=== PATIENT | male | born 1945 | race Caucasian/White ===

== ENCOUNTER 2020-08-24 09:47 | Day surgery (SDC) | payer MEDICARE, OTHER ==
[~2020-08-24 09:47] MED LIST: BUPIVACAINE HCL 0.75% INJ/PF (7.5 MG/1 ML) 10 ML SDV OD PRN; KETOROLAC TROMETHAMINE 0.45% 4 DROP/0.4 ML DROPERETTE OD PRN; LIDOCAINE 1% INJ-PF (10 MG/ML) 30 ML SDV ONE; LIDOCAINE 4% INJ/PF (40 MG/ML) 5 ML AMPUL OD PRN
[2020-08-24] MEDS: TETRACAINE HCL 0.5% OPH SOLN 4 ML OD PRN ×3 (10:15→11:15)
[2020-08-24] MEDS: TROPICAMIDE 1% OPH SOLN 15 ML OD PRN ×3 (10:16→10:45)
[2020-08-24] MEDS: BESIFLOXACIN HCL 0.6% OPH SUSP 5 ML BOTTLE OD PRN ×4 (10:16→11:50)
[2020-08-24] MEDS: CYCLOPENTOLATE 0.2%/PHENYLEPHRINE 1% OPH SOLN 2 ML OD PRN ×3 (10:16→10:45)
[2020-08-24] MEDS: LIDOCAINE 1%/PHENYLEPHRINE 1.5% 1 ML VIAL ONE ×2 (11:23→11:31)
[2020-08-24] MEDS: CHONDR SU A NA/HYALUR INTRAOC KIT (SURGICARE) ONE ×2 (11:23→11:31)
[2020-08-24] MEDS: EPINEPHRINE INJ/PF 1 MG/1 ML AMPULE ONE ×2 (11:23→11:31)
[2020-08-24] MEDS ORDERED: MIDAZOLAM 2 MG/2 ML INJ ONE (11:27)
[2020-08-24] MEDS: PREDNISOLONE ACETATE 1% OPH SUSP 5 ML OD PRN ×2 (11:50)
[2020-08-24] MEDS: DORZOLAMIDE HCL 2%/TIMOLOL MALEAT 0.5% OPH SOLN 10 ML OD PRN ×2 (11:50)
--- NOTE | 2020-08-24 12:13 | Operative Report ---
Operative Report-[facility] Operative Report: DATE OF SURGERY: 08/24/2020 PREOPERATIVE DIAGNOSIS: 1. CATARACT, RIGHT EYE 2. PUPIL MIOSIS, RIGHT EYE POSTOPERATIVE DIAGNOSIS: 1. CATARACT, RIGHT EYE 2. PUPIL MIOSIS, RIGHT EYE PROCEDURE PERFORMED: COMPLEX CATARACT EXTRACTION WITH TORIC INTRAOCULAR LENS, RIGHT EYE Intraocular Lens Model: [id number] 17.0 Total Phaco Time: 20.92 CDE SURGEON: DEEJAY VELARDE MD ANESTHESIA: Topical with MAC plus intraocular phenylephrine and lidocaine INDICATIONS FOR SURGERY: Difficulty reading small print and driving INDICATIONS FOR COMPLEX: Poor pupil dilation requiring the use of a Malyugin ring PROCEDURE: The patient was brought to the operating room and placed in a seated position. A lid lid speculum was placed in the right eye. Using a toric marker the 0-70 and 180 degrees of the eye was marked using a toric marker. The lid speculum was removed. The patient was placed in a reclining position. Topical anesthesia was administered. This consisted of instrument wipe pledgets soaked in a solution of 4% Xylocaine mixed with 0.75% Marcaine in a 1:2 ratio. A 2 x 1 cm pledget was placed in the superior fornix. A 1 x 1 cm pledget was placed in the inferior fornix. The eye was patched for 5 minutes. The patch and pledgets were removed. The eye was sterilely prepped and draped in the usual manner. A lid speculum was placed in the eye. A 4-0 black silk suture was placed around the superior and inferior rectus muscle to use as traction. A conjunctival peritomy was made at the 10 o'clock position. Hemostasis was obtained with bipolar cautery. A posterior limbal groove was created using a crescent knife and dissected anteriorly towards the cornea. Sharp point blade was used to create a paracentesis site at the 2 o'clock position. A 2.4 mm keratome was used into the anterior chamber through the groove. Then 0.5 mL of 1% non-preserved lidocaine with phenylephrine was injected into the anterior chamber. Viscoelastic was injected into the anterior chamber. Pupil dilation was approximately 4.5 mm. A Malyugin Ring was placed stabilizing the iris. An anterior capsulotomy was performed using Utrata forceps in a capsulorrhexis fashion. Hydrodissection and hydrodelineation was performed. Phacoemulsification was performed in the divide and conquer technique. Following this, that I/A unit was used to remove residual cortex. Viscoelastic was injected into the capsular bag. A small capsular tag was seen superiorly with an intact posterior capsule. The 175 degree axis was marked on the eye using the previously marked sites as reference. Intraocular lens were placed in the capsular bag and rotated to the 175 degree axis. The Malyugin ring haptics were removed and the ring was removed from the eye. The I/A unit was used to remove residual viscoelastic. The lens position was readjusted to the 175 degree axis. The wound was seen to be watertight under high and low pressure and no sutures were placed. The 4-0 black silk sutures and lid speculum were removed. The eye was shielded after Besivance and Cosopt drops were placed. The patient tolerated the procedure well and was sent to recovery room in good condition.
== END 2020-08-24 12:23 | disposition home or self-care (01) ==
LOC: SC 09:47
PROVIDERS: ATTEND Ophthalmology
DX: H25.11 Age-related nuclear cataract, right eye (principal); H57.03 Miosis; D86.2 Sarcoidosis of lung with sarcoidosis of lymph nodes; H16.223 Keratoconjunctivitis sicca, not specified as Sjogren's, bilateral; H17.89 Other corneal scars and opacities; Z79.899 Other long term (current) drug therapy; I48.91 Unspecified atrial fibrillation; D64.9 Anemia, unspecified
CPT/HCPCS: 66982; J2250; J3490 ×4; A9270; J0171; 142; V2787

== ENCOUNTER 2020-10-11 13:47 | Inpatient (IN) | payer MEDICARE, OTHER ==
--- NOTE | 2020-10-11 14:36 | ER Document Report ---
ED Medical Screen (RME) - General Chief Complaint: Abnormal Lab Results Stated Complaint: ABNORMAL LABS Time Seen by Provider: 10/11/20 14:24 Primary Care Provider: VISHNU BEE MD [Primary Care Provider] - Follow up as needed Notes: Patient is a 75-year-old male who presents emergency department with low blood counts. Few days ago the patient's hemoglobin was 6. He was seen by Dr. Bee and got blood. He was referred to the emergency department by Dr. Cano. And also had a slightly elevated bilirubin level. Denies any right upper quadrant abdominal pain. Patient has a history of sarcoidosis. Exam: Patient appears jaundiced. I have greeted and performed a rapid initial assessment of this patient. A comprehensive ED assessment and evaluation of the patient, analysis of test results and completion of medical decision making process will be conducted by an additional ED providers. TRAVEL OUTSIDE OF THE [place] IN LAST 30 DAYS: No - Related Data Allergies/Adverse Reactions: No Known Allergies Allergy (Verified 08/20/20 12:05) Past Medical History - Past Medical History Cardiac Medical History: Reports: Hx Hypertension Denies: Hx Congestive Heart Failure, Hx Heart Attack Pulmonary Medical History: Denies: Hx Asthma, Hx Bronchitis, Hx COPD, Hx Pneumonia, Hx Tuberculosis Neurological Medical History: Denies: Hx Cerebrovascular Accident, Hx Seizures, Hx Parkinson's Disease Renal/ Medical History: Reports: Hx Benign Prostatic Hyperplasia. Denies: Hx End Stage Renal Disease, Hx Kidney Stones GI Medical History: Denies: Hx Cirrhosis, Hx Gastroesophageal Reflux Disease, Hx Hepatitis, Hx Hiatal Hernia, Hx Ulcer Musculoskeltal Medical History: Denies Hx Arthritis, Denies Hx Multiple Sclerosis Psychiatric Medical History: Denies: Hx Bipolar Disorder, Hx Depression, Hx Schizophrenia Infectious Medical History: Denies: Hx Hepatitis Past Surgical History: Denies: Hx Open Heart Surgery, Hx Pacemaker - Immunizations Hx Diphtheria, Pertussis, Tetanus Vaccination: Yes Physical Exam - Vital signs Vitals: Temp Resp BP Pulse Ox 98.0 F 20 119/56 L 100 10/11/20 13:57 10/11/20 13:57 10/11/20 13:57 10/11/20 13:57 Course - Vital Signs Vital signs: Temp Pulse Resp BP Pulse Ox 98.0 F 20 119/56 L 100 10/11/20 13:57 10/11/20 13:57 10/11/20 13:57 10/11/20 13:57 Doctor's Discharge - Discharge Referrals: VISHNU BEE MD [Primary Care Provider] - Follow up as needed
--- NOTE | 2020-10-11 15:32 | RADIOLOGY REPORT (SQ) ---
EXAM DESCRIPTION: CHEST SINGLE VIEW IMAGES COMPLETED DATE/TIME: 10/11/2020 3:24 pm REASON FOR STUDY: shortness of breath when walking COMPARISON: None. EXAM PARAMETERS: NUMBER OF VIEWS: One view. TECHNIQUE: An AP view of the chest was obtained. RADIATION DOSE: NA LIMITATIONS: None. FINDINGS: LUNGS AND PLEURA: No consolidation, pleural effusion or pneumothorax. MEDIASTINUM AND HILAR STRUCTURES: No mediastinal or hilar contour abnormality. HEART AND VASCULAR STRUCTURES: The cardiac silhouette and pulmonary vasculature are within normal prado its. BONES: No acute findings. HARDWARE: None in the chest. OTHER: No other finding. IMPRESSION: No acute cardiopulmonary process. TECHNICAL DOCUMENTATION: JOB ID: [id number] 2010 [employer]- All Rights Reserved Reading location - IP/workstation name: [email or web address]
[2020-10-11 15:38] LABS: HEMATOCRIT 19.6 % (37.9-51.0); MEAN CORPUSCULAR HEMOGLOBIN 34.2 pg (27.0-33.4); MEAN CORPUSCULAR HGB CONC 33.8 g/dL (32.0-36.0); MEAN CORPUSCULAR VOLUME 101 fl (80-97); RED BLOOD COUNT 1.93 10^6/uL (4.35-5.55); RED CELL DISTRIBUTION WIDTH 23.6 % (11.5-14.0)
[2020-10-11 15:44] LABS: INTERNATIONAL RATION (INR) 1.22; PROTHROMBIN TIME 15.6 SEC (11.4-15.4)
[2020-10-11 15:45] LABS: PARTIAL THROMBOPLASTIN TIME 33.2 SEC (23.5-35.8)
[2020-10-11 15:50] LABS: ALKALINE PHOSPHATASE 67 U/L (38-126); ANION GAP 13 (5-19); ASPARTATE AMINO TRANSFERASE 51 U/L (17-59); BILIRUBIN,DIRECT 0.8 mg/dL (0.0-0.4); BILIRUBIN,TOTAL 6.4 mg/dL (0.2-1.3); BLOOD UREA NITROGEN 19 mg/dL (7-20); CALCIUM 9.7 mg/dL (8.4-10.2); CARBON DIOXIDE 22 mmol/L (22-30); CHLORIDE 103 mmol/L (98-107); GLUCOSE 115 mg/dL (75-110); POTASSIUM 4.1 mmol/L (3.6-5.0); TOTAL PROTEIN 8.5 g/dL (6.3-8.2)
[2020-10-11 15:53] LABS: PLATELET COUNT 79 10^3/uL (150-450)
[2020-10-11 15:59] LABS: ABSOLUTE MONOCYTES # (MANUAL) 0.4 10^3/uL (0.1-1.4); ANISOCYTOSIS 3+; BAND NEUTROPHILS % (MANUAL) 3 % (3-5); BASOPHILS % (MANUAL) 0 % (0-2); EOSINOPHILS % (MANUAL) 0 % (0-6); LYMPHOCYTES % (MANUAL) 32 % (13-45); METAMYELOCYTES % (MANUAL) 1 % (0-1); MONOCYTES % (MANUAL) 14 % (3-13); NUCLEATED RED BLOOD CELLS 4 /100 WBC (0); SEGMENTED NEUTROPHILS % (MAN) 49 % (42-78); TOTAL CELLS COUNTED 100
[2020-10-11 16:00] LABS: PLATELET COMMENT DECREASED
[2020-10-11 16:01] LABS: OVALOCYTES 1+; POIKILOCYTOSIS 1+; POLYCHROMASIA SLIGHT; TEAR DROP CELLS 1+
[2020-10-11 16:03] LABS: HEMOGLOBIN 6.6 g/dL (13.5-17.0)
[2020-10-11] MEDS ORDERED: NORMAL SALINE 250 ML IV PRN ×2 (16:09)
--- NOTE | 2020-10-11 16:12 | ER Document Report ---
ED General - General Chief Complaint: Abnormal Lab Results Stated Complaint: ABNORMAL LABS Time Seen by Provider: 10/11/20 14:24 Primary Care Provider: VISHNU BARCLAY MD [Primary Care Provider] - Follow up as needed Mode of Arrival: Ambulatory Information source: Patient Notes: 10/11/20 14:25 - Nursing Note by DILLONJULIANRA Toro Num: [id number] : 1945 Patient Age: 75 Pt arrives via wheelchair to triage. Pt states that Dr. Cano sent him here for admission for an elevated bilirubin. Pt states that he has anemia and gets blood transfusions every other week. Pt reports a hx of sarcoidosis. Pt is a&ox4 with mild sob. Initialized on 10/11/20 14:25 - END OF NOTE ED Medical Screen (Place Notes) - General Chief Complaint: Abnormal Lab Results Stated Complaint: ABNORMAL LABS Time Seen by Provider: 10/11/20 14:24 Primary Care Provider: VISHNU BARCLAY MD [Primary Care Provider] - Follow up as needed Notes: Patient is a 75-year-old male who presents emergency department with low blood counts. Few days ago the patient's hemoglobin was 6. He was seen by Dr. Barclay and got blood. He was referred to the emergency department by Dr. Cano. And also had a slightly elevated bilirubin level. Denies any right upper quadrant abdominal pain. Patient has a history of sarcoidosis. Exam: Patient appears jaundiced. MY NOTES 75-year-old male arrives by POV with his after he was evaluated by Dr. Cano yesterday with blood work that revealed increased bilirubin. He was advised to come to the hospital today. He complains of mild left lower quadrant abdominal pain but otherwise is asymptomatic. He reports in the 1970s he had splenomegaly but this self resolved. He has been followed by Dr. Barclay and has had to receive blood transfusions since last September every 3 weeks or so. His reports for the last month or more he has been receiving 2 units of blood every 10 days. He last received blood on 28 September and then again on 07 October. TRAVEL OUTSIDE OF THE [place] IN LAST 30 DAYS: No - Related Data Allergies/Adverse Reactions: No Known Allergies Allergy (Verified 08/20/20 12:05) Past Medical History - General Information source: Patient - Social History Smoking Status: Unknown if Ever Smoked Cigarette use (# per day): No Chew tobacco use (# tins/day): No Smoking Education Provided: No Frequency of alcohol use: None Drug Abuse: None Lives with: Family Family History: Reviewed & Not Pertinent Patient has suicidal ideation: No Patient has homicidal ideation: No - Past Medical History Cardiac Medical History: Reports: Hx Hypertension Denies: Hx Congestive Heart Failure, Hx Heart Attack Pulmonary Medical History: Denies: Hx Asthma, Hx Bronchitis, Hx COPD, Hx Pneumonia, Hx Tuberculosis Neurological Medical History: Denies: Hx Cerebrovascular Accident, Hx Seizures, Hx Parkinson's Disease Renal/ Medical History: Reports: Hx Benign Prostatic Hyperplasia. Denies: Hx End Stage Renal Disease, Hx Kidney Stones GI Medical History: Denies: Hx Cirrhosis, Hx Gastroesophageal Reflux Disease, Hx Hepatitis, Hx Hiatal Hernia, Hx Ulcer Musculoskeletal Medical History: Denies Hx Arthritis, Denies Hx Multiple Sclerosis Psychiatric Medical History: Denies: Hx Bipolar Disorder, Hx Depression, Hx Schizophrenia Infectious Medical History: Denies: Hx Hepatitis Past Surgical History: Denies: Hx Open Heart Surgery, Hx Pacemaker - Immunizations Hx Diphtheria, Pertussis, Tetanus Vaccination: Yes Review of Systems - Review of Systems Constitutional: No symptoms reported EENT: No symptoms reported Cardiovascular: No symptoms reported Respiratory: No symptoms reported Gastrointestinal: See HPI, Abdominal pain - Left lower quadrant abdominal pain Genitourinary: No symptoms reported Male Genitourinary: No symptoms reported Musculoskeletal: No symptoms reported Skin: See HPI, Change in color Hematologic/Lymphatic: No symptoms reported Neurological/Psychological: No symptoms reported -: Yes All other systems reviewed and negative Physical Exam - Vital signs Vitals: Temp Resp BP Pulse Ox 98.0 F 20 119/56 L 100 10/11/20 13:57 10/11/20 13:57 10/11/20 13:57 10/11/20 13:57 Interpretation: Normal - General General appearance: Appears well, Alert - HEENT Head: Normocephalic, Atraumatic Eyes: Scleral icterus Conjunctiva: Icteric Extraocular movements intact: Yes Eyelashes: Normal Pupils: PERRL Sinus: Normal Nasal: Normal Mouth/Lips: Normal Mucous membranes: Normal Pharynx: Normal Neck: Normal - Respiratory Respiratory status: No respiratory distress Chest status: Nontender Breath sounds: Normal Chest palpation: Normal - Cardiovascular Rhythm: Regular Heart sounds: Normal auscultation Murmur: No - Abdominal Inspection: Normal Distension: No distension Bowel sounds: Normal Tenderness: Nontender Organomegaly: No organomegaly - Rectal Prostate: Other - Deferred - Genitourinary Scrotum: Other - Deferred - Back Back: Normal, Nontender - Extremities General upper extremity: Normal inspection, Nontender, Normal color, Normal ROM, Normal temperature General lower extremity: Normal inspection, Nontender, Normal color, Normal ROM, Normal temperature, Normal weight bearing. No: Adoins's sign - Neurological Neuro grossly intact: Yes Cognition: Normal Orientation: AAOx4 [place] Coma Scale Eye Opening: Spontaneous [place] Coma Scale Verbal: Oriented [place] Coma Scale Motor: Obeys Commands [place] Coma Scale Total: 15 Speech: Normal Motor strength normal: LUE, RUE, LLE, RLE Sensory: Normal - Psychological Associated symptoms: Normal affect, Normal mood - Skin Skin Temperature: Warm Skin Moisture: Dry Skin Color: Jaundiced Course - Vital Signs Vital signs: Temp Pulse Resp BP Pulse Ox 98.3 F 94 22 H 135/58 H 100 10/11/20 18:53 10/11/20 18:53 10/11/20 18:53 10/11/20 18:53 10/11/20 18:53 - Laboratory Results Result Diagrams: 10/11/20 15:05 10/11/20 15:05 Laboratory Results Interpreted: 10/11/20 10/11/20 10/11/20 15:05 15:05 15:05 WBC 3.0 L RBC 1.93 L Hgb 6.6 L Hct 19.6 L MCV 101 H MCH 34.2 H RDW 23.6 H Plt Count 79 L Monocytes % (Manual) 14 H Abs Neuts (Manual) 1.6 L PT 15.6 H Glucose 115 H Total Bilirubin 6.4 H Direct Bilirubin 0.8 H Total Protein 8.5 H Crossmatch 10/11/20 15:05 WBC RBC Hgb Hct MCV MCH RDW Plt Count Monocytes % (Manual) Abs Neuts (Manual) PT Glucose Total Bilirubin Direct Bilirubin Total Protein Crossmatch See Detail Critical Laboratory Results Reviewed: Yes Attending or Supervising Physician who Reviewed Labs: AUUGST RUIZ JR - Radiology Results Radiology Results Interpreted: 10/11/20 19:20 Dr. Juárez radiologist Critical Radiology Results Reviewed: No Critical Results Attending or Supervising Physician who Reviewed Radiology: AUGUST RUIZ JR Critical Care Note - Critical Care Note Comments: I attempted to call Dr. Cano about this case at 1800 but he did not answer and combine operator called twice and then called Dr. Morgan and I spoke with him at 1917 and he advises admit to hospital. We noted that this patient is a Dr. Barclay patient as well. Discharge - Discharge Clinical Impression: Splenomegaly, Jaundice Anemia Qualifiers: Anemia type: unspecified type Qualified Code(s): D64.9 - Anemia, unspecified Disposition: ADMITTED INPATIENT Admitting Provider: Eddie Additional Instructions: Transfer patient to medical floor per Dr. Morgan/this patient is a Dr. Cano patient Referrals: VISHNU BARCLAY MD [Primary Care Provider] - Follow up as needed
--- NOTE | 2020-10-11 16:59 | RADIOLOGY REPORT (SQ) ---
EXAM DESCRIPTION: CT ABD/PELVIS NO ORAL OR IV IMAGES COMPLETED DATE/TIME: 10/11/2020 4:38 pm REASON FOR STUDY: inc bili COMPARISON: None. TECHNIQUE: CT scan of the abdomen and pelvis performed without intravenous or oral contrast. Images reviewed with lung, soft tissue, and bone windows. Reconstructed coronal and sagittal MPR images revi ewed. All images stored on PACS. All CT scanners at this facility use dose modulation, iterative reconstruction, and/or weight based d osing when appropriate to reduce radiation dose to as low as reasonably achievable (ALARA). [facility]: Dose Right [facility]: CareDose [facility]: Dose Right [facility]: Teradose 4D [facility]: Smart Why Not Give Back RADIATION DOSE: CT Rad equipment meets quality standard of care and radiation dose reduction techniq ues were employed. CTDIvol: 4.8 mGy. DLP: 271 mGy-cm. LIMITATIONS: None. FINDINGS: LOWER CHEST: No acute abnormality. NON-CONTRASTED LIVER, SPLEEN, ADRENALS: Evaluation is limited by the absence of intravenous contrast. There is no evidence hepatic steatosis. The spleen is enlarged. There is no adrenal mass. PANCREAS: No acute gross abnormality of the pancreas. GALLBLADDER: No acute gross abnormality of the gallbladder. RIGHT KIDNEY AND URETER: Evaluation is limited by the absence of intravenous contrast. There is no h ydronephrosis, nephrolithiasis, hydroureter or ureterolithiasis. LEFT KIDNEY AND URETER: Evaluation is limited by the absence of intravenous contrast. There is no hy dronephrosis, nephrolithiasis, hydroureter or ureterolithiasis. AORTA AND RETROPERITONEUM: No aneurysm of the abdominal aorta. No retroperitoneal adenopathy, hemorr sara or mass. BOWEL AND PERITONEAL CAVITY: Colonic diverticulosis without diverticulitis. There is no bowel obstru ction, bowel wall thickening or pericolonic/ perienteric inflammation. There is no mesenteric adenop athy, free intraperitoneal fluid or mesenteric/omental inflammation. APPENDIX: Normal. PELVIS, BLADDER, AND ABDOMINAL WALL:The prostate gland is enlarged. The urinary bladder is contracte d. There is no abdominal wall mass or hernia BONES: No acute abnormality. OTHER: No other finding. IMPRESSION: 1. No acute intra-abdominal abnormality. 2. Splenomegaly. 3. Prostatomegaly. 4. Colonic diverticulosis without diverticulitis. COMMENT: Quality ID # [id number]: Final reports with documentation of one or more dose reduction techniques (e.g., Automated exposure control, adjustment of the mA and/or kV according to patient size, use of iterative reconstruction technique) TECHNICAL DOCUMENTATION: JOB ID: [id number] 2010 [employer]- All Rights Reserved Reading location - IP/workstation name: [email or web address]
--- NOTE | 2020-10-11 19:11 | EKG REPORT ---
SEVERITY:- ABNORMAL ECG - SINUS RHYTHM RIGHT BUNDLE BRANCH BLOCK : Confirmed by: Sahara Castorena MD 11-Oct-2020 19:10:06
[2020-10-12 04:55] LABS: ALBUMIN 3.7 g/dL (3.5-5.0); ALKALINE PHOSPHATASE 50 U/L (38-126); ANION GAP 9 (5-19); ASPARTATE AMINO TRANSFERASE 39 U/L (17-59); BILIRUBIN,TOTAL 7.8 mg/dL (0.2-1.3); BLOOD UREA NITROGEN 19 mg/dL (7-20); CALCIUM 9.1 mg/dL (8.4-10.2); CARBON DIOXIDE 24 mmol/L (22-30); CHLORIDE 105 mmol/L (98-107); GLUCOSE 108 mg/dL (75-110); POTASSIUM 4.2 mmol/L (3.6-5.0); TOTAL PROTEIN 6.6 g/dL (6.3-8.2)
[2020-10-12 06:28] LABS: HEMATOCRIT 22.5 % (37.9-51.0); MEAN CORPUSCULAR HEMOGLOBIN 32.3 pg (27.0-33.4); MEAN CORPUSCULAR HGB CONC 33.5 g/dL (32.0-36.0); RED BLOOD COUNT 2.34 10^6/uL (4.35-5.55); RED CELL DISTRIBUTION WIDTH 18.4 % (11.5-14.0); WHITE BLOOD COUNT 2.4 10^3/uL (4.0-10.5)
[2020-10-12 06:29] LABS: HEMOGLOBIN 7.6 g/dL (13.5-17.0)
[2020-10-12 06:33] LABS: ABSOLUTE LYMPHOCYTES# (MANUAL) 0.7 10^3/uL (0.5-4.7); ABSOLUTE MONOCYTES # (MANUAL) 0.4 10^3/uL (0.1-1.4); BAND NEUTROPHILS % (MANUAL) 1 % (3-5); BASOPHILS % (MANUAL) 0 % (0-2); EOSINOPHILS % (MANUAL) 0 % (0-6); LYMPHOCYTES % (MANUAL) 29 % (13-45); METAMYELOCYTES % (MANUAL) 1 % (0-1); MONOCYTES % (MANUAL) 16 % (3-13); NUCLEATED RED BLOOD CELLS 5 /100 WBC (0); SEGMENTED NEUTROPHILS % (MAN) 53 % (42-78); TOTAL CELLS COUNTED 100; TOXIC GRANULATION SLIGHT
[2020-10-12 06:34] LABS: ANISOCYTOSIS 2+; BURR CELLS SLIGHT; OVALOCYTES SLIGHT; POIKILOCYTOSIS 1+; POLYCHROMASIA 1+; SCHISTOCYTES SLIGHT
[2020-10-12 06:35] LABS: MEAN CORPUSCULAR VOLUME 96 fl (80-97); PLATELET COMMENT DECREASED; TEAR DROP CELLS SLIGHT
[2020-10-12 06:40] LABS: PLATELET COUNT 59 10^3/uL (150-450)
--- NOTE | 2020-10-12 08:22 | PDOC CONSULTATION ---
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 Anytime he is placed on high-dose steroids he does well, but when we try to taper him he worsens. Ultimately I made a decision that he needs some sort of systemic therapy for both the autoimmune hemolytic anemia and ITP and we begin the process of getting Rituxan approved for him. Ultimately we did get it approved but patient refused because of considerations of myelosuppression in the setting of coronavirus pandemic. Recently, he went to his PCP and was found to be acutely jaundiced, on labs total bili was in the 5 range, I was called by Dr. Hernández's PA, and recommended that he be referred to the ER, here is bilirubin was 5.8, direct bili was only 0.9-1. So all of it was indirect consistent with hemolysis. In addition, his platelet count had decreased also. Past Medical History Cardiac Medical History: Reports: Hypertension Denies: Congestive Heart Failure, Myocardial Infarction Pulmonary Medical History: Denies: Asthma, Bronchitis, Chronic Obstructive Pulmonary Disease (COPD), Pneumonia, Tuberculosis Neurological Medical History: Denies: Seizures Renal/ Medical History: Denies: End Stage Renal Disease GI Medical History: Denies: Cirrhosis, Gastroesophageal Reflux Disease, Hepatitis, Hiatal Hernia Musculoskeltal Medical History: Denies: Arthritis Psychiatric Medical History: Denies: Bipolar Disorder, Depression Hematology: Reports: Anemia Denies: Sickle Cell Disease, Bleeding Tendencies Past Surgical History Past Surgical History: Denies: Pacemaker Social History Lives with: Family Smoking Status: Unknown if Ever Smoked Drugs: None - Advance Directive Resuscitation Status: Full Code Family History Family History: Reviewed & Not Pertinent Parental Family History Reviewed: Yes Children Family History Reviewed: Yes Sibling(s) Family History Reviewed.: Yes Medication/Allergy Home Medications: Metoprolol Succinate [Toprol Xl 25 mg Tab.sr] 25 mg PO QAM 08/20/20 Tamsulosin HCl [Flomax 0.4 mg Cap.sr] 0.4 mg PO DAILY 08/20/20 Allergies/Adverse Reactions: No Known Allergies Allergy (Verified 08/20/20 12:05) Review of Systems Constitutional: ABSENT: chills, fever(s), headache(s), weight gain, weight loss Eyes: ABSENT: visual disturbances Ears: ABSENT: hearing changes Cardiovascular: ABSENT: chest pain, dyspnea on exertion, edema, orthropnea, palpitations Respiratory: ABSENT: cough, hemoptysis Gastrointestinal: ABSENT: abdominal pain, constipation, diarrhea, hematemesis, hematochezia, nausea, vomiting Genitourinary: ABSENT: dysuria, hematuria Musculoskeletal: ABSENT: joint swelling Integumentary: ABSENT: rash, wounds Neurological: ABSENT: abnormal gait, abnormal speech, confusion, dizziness, focal weakness, syncope Psychiatric: ABSENT: anxiety, depression, homidical ideation, suicidal ideation Endocrine: ABSENT: cold intolerance, heat intolerance, polydipsia, polyuria Hematologic/Lymphatic: ABSENT: easy bleeding, easy bruising Physical Exam Vital Signs: Temp Pulse Resp BP Pulse Ox 98 F 79 20 130/63 H 100 10/12/20 06:30 10/12/20 06:30 10/12/20 06:30 10/12/20 06:30 10/12/20 06:30 Intake & Output 10/11/20 10/12/20 10/13/20 06:59 06:59 06:59 Intake Total 1010 Balance 1010 Weight 62.8 kg General appearance: PRESENT: no acute distress, well-developed, well-nourished Head exam: PRESENT: atraumatic, normocephalic Eye exam: PRESENT: conjunctiva pink, EOMI, PERRLA. ABSENT: scleral icterus Ear exam: PRESENT: normal external ear exam Mouth exam: PRESENT: moist, tongue midline Neck exam: ABSENT: carotid bruit, JVD, lymphadenopathy, thyromegaly Respiratory exam: PRESENT: clear to auscultation jose. ABSENT: rales, rhonchi, wheezes Cardiovascular exam: PRESENT: RRR. ABSENT: diastolic murmur, rubs, systolic murmur Pulses: PRESENT: normal dorsalis pedis pul Vascular exam: PRESENT: normal capillary refill GI/Abdominal exam: PRESENT: normal bowel sounds, soft. ABSENT: distended, guarding, mass, organolmegaly, rebound, tenderness Rectal exam: PRESENT: deferred Extremities exam: PRESENT: full ROM. ABSENT: calf tenderness, clubbing, pedal edema Neurological exam: PRESENT: alert, awake, oriented to person, oriented to place, oriented to time, oriented to situation, CN II-XII grossly intact. ABSENT: motor sensory deficit Psychiatric exam: PRESENT: appropriate affect, normal mood. ABSENT: homicidal ideation, suicidal ideation Skin exam: PRESENT: dry, intact, warm. ABSENT: cyanosis, rash Results Laboratory Results: 10/12/20 02:27 10/12/20 02:27 10/11/20 10/11/20 10/11/20 15:05 15:05 15:05 WBC 3.0 L RBC 1.93 L Hgb 6.6 L Hct 19.6 L MCV 101 H MCH 34.2 H MCHC 33.8 RDW 23.6 H Plt Count 79 L Seg Neutrophils % Not Reportable Sodium 138.4 Potassium 4.1 Chloride 103 Carbon Dioxide 22 Anion Gap 13 BUN 19 Creatinine 0.82 Est GFR ( Amer) > 60 Glucose 115 H Calcium 9.7 Total Bilirubin 6.4 H AST 51 Alkaline Phosphatase 67 Total Protein 8.5 H Albumin 5.0 Blood Type O POSITIVE Antibody Screen POSITIVE 10/12/20 10/12/20 02:27 02:27 WBC 2.4 L RBC 2.34 L Hgb 7.6 L Hct 22.5 L MCV 96 D MCH 32.3 MCHC 33.5 RDW 18.4 H Plt Count 59 L Seg Neutrophils % Not Reportable Sodium 138.1 Potassium 4.2 Chloride 105 Carbon Dioxide 24 Anion Gap 9 BUN 19 Creatinine 0.78 Est GFR ( Amer) > 60 Glucose 108 Calcium 9.1 Total Bilirubin 7.8 H AST 39 Alkaline Phosphatase 50 Total Protein 6.6 Albumin 3.7 Blood Type Antibody Screen Impressions: Chest X-Ray 10/11/20 14:33 IMPRESSION: No acute cardiopulmonary process. Abdomen/Pelvis CT 10/11/20 16:15 IMPRESSION: 1. No acute intra-abdominal abnormality. 2. Splenomegaly. 3. Prostatomegaly. 4. Colonic diverticulosis without diverticulitis. 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 Is this a current diagnosis for this admission?: Yes Plan: Autoimmune hemolytic anemia probably related in some part to the sarcoidosis and auto antibody production. Start patient on Solu-Medrol 60 mg IV daily. Ultimately will need to make a decision on when to start the Rituxan. He now agrees that Rituxan is necessary, but we will likely initiate this as an outpatient. Usually, with a few days of high-dose steroids he improves on multiple fronts. (2) Acute ITP Is this a current diagnosis for this admission?: Yes Plan: Probable ITP as well, steroid should improve this but ultimately Rituxan will improve this as well. (3) Jaundice Is this a current diagnosis for this admission?: Yes Plan: Indirect hyperbilirubinemia secondary to hemolysis. Continue with hydration and steroids as above (4) Sarcoidosis of other sites Is this a current diagnosis for this admission?: Yes Plan: Systemic sarcoidosis, plan as above - Time Time Spent: Greater than 70 Minutes
[2020-10-12] MEDS: METOPROLOL SUCCINATE 25 MG TAB.SR.24H PO SCH (08:54)
[2020-10-12] MEDS: FAMOTIDINE 20 MG TABLET PO SCH ×2 (11:05→17:42)
[2020-10-12] MEDS: TAMSULOSIN HCL 0.4 MG CAP.SR.24H PO SCH (11:06)
[2020-10-12] MEDS: METHYLPREDNISOLONE INJ 125 MG/2 ML SDV IV SCH (11:06)
--- NOTE | 2020-10-12 20:03 | PDOC CONSULTATION ---
Consultation Consult Date: 10/12/20 Provider Consulted: JOSSUE LOPEZ History of Present Illness Admission Date/PCP: 10/11/20 21:15 VISHNU BEE MD History of Present Illness: CABRERA PONCE is a 75 year old male Patient was admitted on 10/12/2020 with abnormal bilirubin. Consultation was requested for his elevated bilirubin. Patient has a history of sarcoidosis, autoimmune hemolytic anemia and possibly ITP. He follows up with Dr. Bee and has been treated with steroids in the past with good response of his hemolytic anemia. On 10/07/2020 his total bilirubin was 5.3 with a direct of 0.5 and the rest of the LFTs were normal. On 10/01/2020 his total bilirubin was 6.4 with a direct of 0.8. He had a CT yester day without contrast that showed splenomegaly but no lesions in his liver. Past Medical History Cardiac Medical History: Reports: Hypertension Denies: Congestive Heart Failure, Myocardial Infarction Pulmonary Medical History: Denies: Asthma, Bronchitis, Chronic Obstructive Pulmonary Disease (COPD), Pneumonia, Tuberculosis Neurological Medical History: Denies: Seizures Renal/ Medical History: Denies: End Stage Renal Disease GI Medical History: Denies: Cirrhosis, Gastroesophageal Reflux Disease, Hepatitis, Hiatal Hernia Musculoskeltal Medical History: Denies: Arthritis Psychiatric Medical History: Denies: Bipolar Disorder, Depression Hematology: Reports: Anemia Denies: Sickle Cell Disease, Bleeding Tendencies Past Surgical History Past Surgical History: Denies: Pacemaker Social History Lives with: Family Smoking Status: Unknown if Ever Smoked Drugs: None - Advance Directive Resuscitation Status: Full Code Family History Family History: Reviewed & Not Pertinent Parental Family History Reviewed: No Children Family History Reviewed: NA Sibling(s) Family History Reviewed.: NA Medication/Allergy Home Medications: Metoprolol Succinate [Toprol Xl 25 mg Tab.sr] 25 mg PO QAM 08/20/20 Tamsulosin HCl [Flomax 0.4 mg Cap.sr] 0.4 mg PO DAILY 08/20/20 Allergies/Adverse Reactions: No Known Allergies Allergy (Verified 08/20/20 12:05) Physical Exam Vital Signs: Temp Pulse Resp BP Pulse Ox 97.7 F 73 18 130/61 H 100 10/12/20 12:00 10/12/20 12:00 10/12/20 12:00 10/12/20 12:00 10/12/20 12:00 Intake & Output 10/11/20 10/12/20 10/13/20 06:59 06:59 06:59 Intake Total 1010 Balance 1010 Weight 62.8 kg Results Laboratory Results: 10/12/20 02:27 10/12/20 02:27 10/11/20 10/12/20 10/12/20 15:05 02:27 02:27 WBC 2.4 L RBC 2.34 L Hgb 7.6 L Hct 22.5 L MCV 96 D MCH 32.3 MCHC 33.5 RDW 18.4 H Plt Count 59 L Seg Neutrophils % Not Reportable Sodium 138.1 Potassium 4.2 Chloride 105 Carbon Dioxide 24 Anion Gap 9 BUN 19 Creatinine 0.78 Est GFR ( Amer) > 60 Glucose 108 Calcium 9.1 Total Bilirubin 7.8 H AST 39 Alkaline Phosphatase 50 Total Protein 6.6 Albumin 3.7 Blood Type O POSITIVE Antibody Screen POSITIVE Impressions: Chest X-Ray 10/11/20 14:33 IMPRESSION: No acute cardiopulmonary process. Abdomen/Pelvis CT 10/11/20 16:15 IMPRESSION: 1. No acute intra-abdominal abnormality. 2. Splenomegaly. 3. Prostatomegaly. 4. Colonic diverticulosis without diverticulitis. Assessment & Plan - Diagnosis (1) Jaundice Is this a current diagnosis for this admission?: Yes Plan: His jaundice is mostly unconjugated and most likely related to his autoimmune hemolytic anemia. The rest of his LFTs are normal and no lesions were identified on the CT of the liver. He was sent for hepatitis serology and the results are pending. He does have a history of sarcoidosis. No GI intervention is required at this time (2) Sarcoidosis of other sites Is this a current diagnosis for this admission?: Yes (3) Splenomegaly Is this a current diagnosis for this admission?: Yes
--- NOTE | 2020-10-12 22:35 | PDOC H&P ---
History of Present Illness Admission Date/PCP: 10/11/20 21:15 VISHNU BEE MD History of Present Illness: CABRERA PONCE is a 75 year old male,He has a history of systemic sarcoidosis, ITP, autoimmune hemolytic anemia, he was referred to the emergency room for evaluation of jaundice, he was found to have hyperbilirubinemia. Patient is well-known to Dr. Bee. I saw patient by the bedside, he has no new complaints Past Medical History Cardiac Medical History: Reports: Hypertension Neurological Medical History: Denies: Seizures Hematology: Reports: Anemia Social History Lives with: Family Smoking Status: Unknown if Ever Smoked Drugs: None - Advance Directive Resuscitation Status: Full Code Family History Family History: Reviewed & Not Pertinent Parental Family History Reviewed: Yes Children Family History Reviewed: Yes Sibling(s) Family History Reviewed.: Yes Medication/Allergy Home Medications: Metoprolol Succinate [Toprol Xl 25 mg Tab.sr] 25 mg PO QAM 08/20/20 Tamsulosin HCl [Flomax 0.4 mg Cap.sr] 0.4 mg PO DAILY 08/20/20 Allergies/Adverse Reactions: No Known Allergies Allergy (Verified 08/20/20 12:05) Review of Systems Constitutional: ABSENT: chills, fever(s), headache(s), weight gain, weight loss Eyes: ABSENT: visual disturbances Ears: ABSENT: hearing changes Cardiovascular: ABSENT: chest pain, dyspnea on exertion, edema, orthropnea, palpitations Respiratory: ABSENT: cough, hemoptysis Gastrointestinal: ABSENT: abdominal pain, constipation, diarrhea, hematemesis, hematochezia, nausea, vomiting Genitourinary: ABSENT: dysuria, hematuria Musculoskeletal: ABSENT: joint swelling Integumentary: PRESENT: pruritus. ABSENT: rash, wounds Neurological: ABSENT: abnormal gait, abnormal speech, confusion, dizziness, focal weakness, syncope Psychiatric: ABSENT: anxiety, depression, homidical ideation, suicidal ideation Endocrine: ABSENT: cold intolerance, heat intolerance, menstrual abnormalities, polydipsia, polyuria Hematologic/Lymphatic: PRESENT: easy bruising. ABSENT: easy bleeding, lymphadenopathy Physical Exam Vital Signs: Temp Pulse Resp BP Pulse Ox 97.7 F 73 18 130/61 H 100 10/12/20 12:00 10/12/20 12:00 10/12/20 12:00 10/12/20 12:00 10/12/20 12:00 Intake & Output 10/11/20 10/12/20 10/13/20 06:59 06:59 06:59 Intake Total 1010 Balance 1010 Weight 62.8 kg General appearance: PRESENT: no acute distress Eye exam: PRESENT: conjunctiva pale, scleral icterus Respiratory exam: PRESENT: clear to auscultation jose Cardiovascular exam: PRESENT: +S1, +S2 GI/Abdominal exam: PRESENT: soft Neurological exam: PRESENT: alert Results Laboratory Results: 10/12/20 02:27 10/12/20 02:27 10/11/20 10/12/20 10/12/20 15:05 02:27 02:27 WBC 2.4 L RBC 2.34 L Hgb 7.6 L Hct 22.5 L MCV 96 D MCH 32.3 MCHC 33.5 RDW 18.4 H Plt Count 59 L Seg Neutrophils % Not Reportable Sodium 138.1 Potassium 4.2 Chloride 105 Carbon Dioxide 24 Anion Gap 9 BUN 19 Creatinine 0.78 Est GFR ( Amer) > 60 Glucose 108 Calcium 9.1 Total Bilirubin 7.8 H AST 39 Alkaline Phosphatase 50 Total Protein 6.6 Albumin 3.7 Blood Type O POSITIVE Antibody Screen POSITIVE Impressions: Chest X-Ray 10/11/20 14:33 IMPRESSION: No acute cardiopulmonary process. Abdomen/Pelvis CT 10/11/20 16:15 IMPRESSION: 1. No acute intra-abdominal abnormality. 2. Splenomegaly. 3. Prostatomegaly. 4. Colonic diverticulosis without diverticulitis. Assessment & Plan - Diagnosis (1) Sarcoidosis of other sites Is this a current diagnosis for this admission?: Yes Plan: Patient already started on steroid (2) Anemia Qualifiers: Anemia type: acquired or hereditary hemolytic anemia Hemolytic anemia type: acquired, autoimmune, other Qualified Code(s): D59.19 - Other autoimmune hemolytic anemia Is this a current diagnosis for this admission?: Yes (3) Splenomegaly Is this a current diagnosis for this admission?: Yes - Time Time Spent: Greater than 70 Minutes Critical Time spent with patient: 25-34 minutes Medications reviewed and adjusted accordingly: Yes Anticipated Discharge Disposition: Home, Self Care Anticipated Discharge Timeframe: 7 days - Inpatient Certification Based on my medical assessment, after consideration of the patient's comorbidities, presenting symptoms, or acuity I expect that the services needed warrant INPATIENT care.: Yes I certify that my determination is in accordance with my understanding of Medicare's requirements for reasonable and necessary INPATIENT services [42 CFR 412.3e].: Yes
[2020-10-13 05:38] LABS: HEPATITS B SURFACE ANTIGEN Negative (Negative)
[2020-10-13 07:03] LABS: HEPATITIS C VIRUS ANTIBODY <0.1 s/co ratio (0.0-0.9)
[2020-10-13 07:44] LABS: HEMATOCRIT 22.3 % (37.9-51.0); MEAN CORPUSCULAR HEMOGLOBIN 33.5 pg (27.0-33.4); MEAN CORPUSCULAR HGB CONC 34.3 g/dL (32.0-36.0); MEAN CORPUSCULAR VOLUME 98 fl (80-97); RED BLOOD COUNT 2.29 10^6/uL (4.35-5.55); RED CELL DISTRIBUTION WIDTH 19.5 % (11.5-14.0); WHITE BLOOD COUNT 2.7 10^3/uL (4.0-10.5)
--- NOTE | 2020-10-13 07:53 | PDOC PROGRESS REPORT ---
Subjective Date:: 10/13/20 Subjective:: Patient seems little stronger today, awaiting labs Reason For Visit: ANEMIA, SPLENOMEGALY, JUNDICE Physical Exam Vital Signs: Temp Pulse Resp BP Pulse Ox 97.4 F 71 20 139/59 H 99 10/13/20 00:51 10/13/20 00:51 10/13/20 00:51 10/13/20 00:51 10/13/20 00:51 Intake & Output 10/12/20 10/13/20 10/14/20 06:59 06:59 06:59 Intake Total 1010 Balance 1010 Weight 62.8 kg 62.6 kg General appearance: PRESENT: no acute distress, well-developed, well-nourished Head exam: PRESENT: atraumatic, normocephalic Eye exam: PRESENT: conjunctiva pink, EOMI, PERRLA. ABSENT: scleral icterus Ear exam: PRESENT: normal external ear exam Mouth exam: PRESENT: moist, tongue midline Neck exam: ABSENT: carotid bruit, JVD, lymphadenopathy, thyromegaly Respiratory exam: PRESENT: clear to auscultation jose. ABSENT: rales, rhonchi, wheezes Cardiovascular exam: PRESENT: RRR. ABSENT: diastolic murmur, rubs, systolic murmur Pulses: PRESENT: normal dorsalis pedis pul Vascular exam: PRESENT: normal capillary refill GI/Abdominal exam: PRESENT: normal bowel sounds, soft. ABSENT: distended, guar ding, mass, organolmegaly, rebound, tenderness Rectal exam: PRESENT: deferred Extremities exam: PRESENT: full ROM. ABSENT: calf tenderness, clubbing, pedal edema Neurological exam: PRESENT: alert, awake, oriented to person, oriented to place, oriented to time, oriented to situation, CN II-XII grossly intact. ABSENT: motor sensory deficit Psychiatric exam: PRESENT: appropriate affect, normal mood. ABSENT: homicidal ideation, suicidal ideation Skin exam: PRESENT: dry, intact, warm. ABSENT: cyanosis, rash Results Laboratory Results: 10/11/20 15:05 Blood Type O POSITIVE Antibody Screen POSITIVE Impressions: Chest X-Ray 10/11/20 14:33 IMPRESSION: No acute cardiopulmonary process. Abdomen/Pelvis CT 10/11/20 16:15 IMPRESSION: 1. No acute intra-abdominal abnormality. 2. Splenomegaly. 3. Prostatomegaly. 4. Colonic diverticulosis without diverticulitis. 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 Is this a current diagnosis for this admission?: Yes Plan: Awaiting labs today continue with high-dose steroids (2) Acute ITP Is this a current diagnosis for this admission?: Yes Plan: Awaiting labs today, continue with high-dose steroids (3) Jaundice Is this a current diagnosis for this admission?: Yes Plan: Clinically slightly better but awaiting labs (4) Sarcoidosis of other sites Is this a current diagnosis for this admission?: Yes Plan: Continue as above - Time Time Spent with patient: 35 or more minutes
[2020-10-13 08:12] LABS: ALKALINE PHOSPHATASE 49 U/L (38-126); ANION GAP 7 (5-19); ASPARTATE AMINO TRANSFERASE 39 U/L (17-59); BILIRUBIN,DIRECT 1.2 mg/dL (0.0-0.4); BILIRUBIN,TOTAL 8.3 mg/dL (0.2-1.3); BLOOD UREA NITROGEN 29 mg/dL (7-20); CALCIUM 9.2 mg/dL (8.4-10.2); CARBON DIOXIDE 25 mmol/L (22-30); CHLORIDE 104 mmol/L (98-107); GLUCOSE 104 mg/dL (75-110); POTASSIUM 4.6 mmol/L (3.6-5.0); TOTAL PROTEIN 6.9 g/dL (6.3-8.2)
[2020-10-13 08:39] LABS: PLATELET COUNT 54 10^3/uL (150-450)
[2020-10-13 08:42] LABS: ABSOLUTE LYMPHOCYTES# (MANUAL) 0.9 10^3/uL (0.5-4.7); ABSOLUTE MONOCYTES # (MANUAL) 0.2 10^3/uL (0.1-1.4); BAND NEUTROPHILS % (MANUAL) 7 % (3-5); BASOPHILS % (MANUAL) 0 % (0-2); EOSINOPHILS % (MANUAL) 1 % (0-6); LYMPHOCYTES % (MANUAL) 27 % (13-45); MONOCYTES % (MANUAL) 9 % (3-13); SEGMENTED NEUTROPHILS % (MAN) 47 % (42-78); TOTAL CELLS COUNTED 100
[2020-10-13 08:44] LABS: ANISOCYTOSIS 2+; OVALOCYTES 2+; POIKILOCYTOSIS 2+; POLYCHROMASIA 1+; TEAR DROP CELLS 1+
[2020-10-13 08:45] LABS: BURR CELLS 1+; NUCLEATED RED BLOOD CELLS 8 /100 WBC (0)
[2020-10-13 08:46] LABS: PLATELET COMMENT DECREASED; PROMYELOCYTES % (MANUAL) 2 % (0)
[2020-10-13 08:49] LABS: HEMOGLOBIN 7.7 g/dL (13.5-17.0)
[2020-10-13] MEDS: FAMOTIDINE 20 MG TABLET PO SCH ×2 (09:35→17:17)
[2020-10-13] MEDS: METOPROLOL SUCCINATE 25 MG TAB.SR.24H PO SCH (09:35)
[2020-10-13] MEDS: TAMSULOSIN HCL 0.4 MG CAP.SR.24H PO SCH (09:35)
[2020-10-13] MEDS: METHYLPREDNISOLONE INJ 125 MG/2 ML SDV IV SCH (09:35)
[2020-10-13 14:22] LABS: PATH REVIEW PATHOLOGIST REVIEWED
--- NOTE | 2020-10-13 14:24 | PDOC PROGRESS REPORT ---
Subjective Date:: 10/13/20 Subjective:: Patient was admitting in the hospital for the pancytopenia and unconjugated bili maurer Patient unconjugated bilirubin due to the hemolytic anemia due to the sarcoidosis currently Dr. Dutton started the patient on a steroid Patient is currently doing well patient's wants to go home denied any chest pain no shortness of the breath Reason For Visit: ANEMIA, SPLENOMEGALY, JUNDICE Physical Exam Vital Signs: Temp Pulse Resp BP Pulse Ox 97.4 F 71 20 139/59 H 99 10/13/20 10:00 10/13/20 00:51 10/13/20 00:51 10/13/20 00:51 10/13/20 00:51 Intake & Output 10/12/20 10/13/20 10/14/20 06:59 06:59 06:59 Intake Total 1010 Balance 1010 Weight 62.8 kg 62.6 kg General appearance: PRESENT: no acute distress, well-developed, well-nourished Head exam: PRESENT: atraumatic, normocephalic Eye exam: PRESENT: conjunctiva pink, EOMI, PERRLA. ABSENT: scleral icterus Ear exam: PRESENT: normal external ear exam Mouth exam: PRESENT: moist, tongue midline Neck exam: PRESENT: full ROM. ABSENT: carotid bruit, JVD, lymphadenopathy, thyromegaly Cardiovascular exam: PRESENT: RRR. ABSENT: diastolic murmur, rubs, systolic murmur Pulses: PRESENT: normal dorsalis pedis pul, +2 pedal pulses bilateral Vascular exam: PRESENT: normal capillary refill GI/Abdominal exam: PRESENT: normal bowel sounds, soft. ABSENT: distended, guarding, mass, organolmegaly, rebound, tenderness Rectal exam: PRESENT: deferred Neurological exam: PRESENT: alert, awake, oriented to person, oriented to place, oriented to time, oriented to situation, CN II-XII grossly intact. ABSENT: mot or sensory deficit Psychiatric exam: PRESENT: appropriate affect, normal mood. ABSENT: homicidal ideation, suicidal ideation Skin exam: PRESENT: dry, intact, warm. ABSENT: cyanosis, rash Results Laboratory Results: 10/13/20 05:47 10/13/20 05:47 10/11/20 10/13/20 10/13/20 15:05 05:47 05:47 WBC 2.7 L RBC 2.29 L Hgb 7.7 L Hct 22.3 L MCV 98 H MCH 33.5 H MCHC 34.3 RDW 19.5 H Plt Count 54 L Seg Neutrophils % Not Reportable Sodium 136.0 L Potassium 4.6 Chloride 104 Carbon Dioxide 25 Anion Gap 7 BUN 29 H Creatinine 0.75 Est GFR ( Amer) > 60 Glucose 104 Calcium 9.2 Total Bilirubin 8.3 H AST 39 Alkaline Phosphatase 49 Total Protein 6.9 Albumin 4.0 Blood Type O POSITIVE Antibody Screen POSITIVE Impressions: Chest X-Ray 10/11/20 14:33 IMPRESSION: No acute cardiopulmonary process. Abdomen/Pelvis CT 10/11/20 16:15 IMPRESSION: 1. No acute intra-abdominal abnormality. 2. Splenomegaly. 3. Prostatomegaly. 4. Colonic diverticulosis without diverticulitis. 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 Is this a current diagnosis for this admission?: Yes (3) Jaundice Is this a current diagnosis for this admission?: Yes (4) Sarcoidosis of other sites Is this a current diagnosis for this admission?: Yes (5) Splenomegaly Is this a current diagnosis for this admission?: Yes - Time Time Spent with patient: 15-24 minutes Level of Care: TELE Medications reviewed and adjusted accordingly: Yes Anticipated discharge: Home Anticipated DC Timeframe: within 48 hours - Plan Summary Plan Summary: Continues the Solu-Medrol continues the current medications
[2020-10-14 06:47] LABS: ANION GAP 8 (5-19); BLOOD UREA NITROGEN 27 mg/dL (7-20); CALCIUM 9.3 mg/dL (8.4-10.2); CARBON DIOXIDE 25 mmol/L (22-30); CHLORIDE 105 mmol/L (98-107); GLUCOSE 103 mg/dL (75-110); POTASSIUM 4.5 mmol/L (3.6-5.0)
[2020-10-14 08:01] LABS: ALBUMIN 3.7 g/dL (3.5-5.0); ALKALINE PHOSPHATASE 47 U/L (38-126); ASPARTATE AMINO TRANSFERASE 38 U/L (17-59); BILIRUBIN,DIRECT 1.2 mg/dL (0.0-0.4); BILIRUBIN,TOTAL 6.4 mg/dL (0.2-1.3); TOTAL PROTEIN 6.8 g/dL (6.3-8.2)
--- NOTE | 2020-10-14 08:20 | PDOC PROGRESS REPORT ---
Subjective Date:: 10/14/20 Subjective:: Patient starting to improve, feels very restless because of the steroids, explained that we need to see a decrease in the bilirubin for at least 2 days prior to discharge. That we may need to be in through the weekend to see that. Had long discussion with patient and family, spent about 40 minutes in discussion Reason For Visit: ANEMIA, SPLENOMEGALY, JUNDICE Physical Exam Vital Signs: Temp Pulse Resp BP Pulse Ox 98.4 F 82 18 140/66 H 99 10/14/20 00:11 10/14/20 00:11 10/14/20 00:11 10/14/20 00:11 10/14/20 00:11 Intake & Output 10/13/20 10/14/20 10/15/20 06:59 06:59 06:59 Intake Total 776 Balance 776 Weight 62.6 kg 57.5 kg General appearance: PRESENT: no acute distress, well-developed, well-nourished Head exam: PRESENT: atraumatic, normocephalic Eye exam: PRESENT: conjunctiva pink, EOMI, PERRLA. ABSENT: scleral icterus Ear exam: PRESENT: normal external ear exam Mouth exam: PRESENT: moist, tongue midline Neck exam: ABSENT: carotid bruit, JVD, lymphadenopathy, thyromegaly Respiratory exam: PRESENT: clear to auscultation jose. ABSENT: rales, rhonchi, wheezes Cardiovascular exam: PRESENT: RRR. ABSENT: diastolic murmur, rubs, systolic murmur Pulses: PRESENT: normal dorsalis pedis pul Vascular exam: PRESENT: normal capillary refill GI/Abdominal exam: PRESENT: normal bowel sounds, soft. ABSENT: distended, guarding, mass, organolmegaly, rebound, tenderness Rectal exam: PRESENT: deferred Extremities exam: PRESENT: full ROM. ABSENT: calf tenderness, clubbing, pedal edema Neurological exam: PRESENT: alert, awake, oriented to person, oriented to place, oriented to time, oriented to situation, CN II-XII grossly intact. ABSENT: motor sensory deficit Psychiatric exam: PRESENT: appropriate affect, normal mood. ABSENT: homicidal ideation, suicidal ideation Skin exam: PRESENT: dry, intact, warm. ABSENT: cyanosis, rash Results Laboratory Results: 10/13/20 05:47 10/14/20 05:51 1210/13/20 10/14/20 15:05 05:47 05:51 WBC 2.7 L RBC 2.29 L Hgb 7.7 L Hct 22.3 L MCV 98 H MCH 33.5 H MCHC 34.3 RDW 19.5 H Plt Count 54 L Seg Neutrophils % Not Reportable Sodium 138.4 Potassium 4.5 Chloride 105 Carbon Dioxide 25 Anion Gap 8 BUN 27 H Creatinine 0.72 Est GFR ( Amer) > 60 Glucose 103 Calcium 9.3 Total Bilirubin AST Alkaline Phosphatase Total Protein Albumin Blood Type O POSITIVE Antibody Screen POSITIVE 10/14/20 05:51 WBC RBC Hgb Hct MCV MCH MCHC RDW Plt Count Seg Neutrophils % Sodium Potassium Chloride Carbon Dioxide Anion Gap BUN Creatinine Est GFR ( Amer) Glucose Calcium Total Bilirubin 6.4 H AST 38 Alkaline Phosphatase 47 Total Protein 6.8 Albumin 3.7 Blood Type Antibody Screen Impressions: Chest X-Ray 10/11/20 14:33 IMPRESSION: No acute cardiopulmonary process. Abdomen/Pelvis CT 10/11/20 16:15 IMPRESSION: 1. No acute intra-abdominal abnormality. 2. Splenomegaly. 3. Prostatomegaly. 4. Colonic diverticulosis without diverticulitis. 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
[2020-10-14] MEDS: METOPROLOL SUCCINATE 25 MG TAB.SR.24H PO SCH (08:27)
[2020-10-14] MEDS: TAMSULOSIN HCL 0.4 MG CAP.SR.24H PO SCH (10:28)
[2020-10-14] MEDS: FAMOTIDINE 20 MG TABLET PO SCH ×2 (10:28→18:05)
[2020-10-14] MEDS: METHYLPREDNISOLONE INJ 125 MG/2 ML SDV IV SCH (10:30)
--- NOTE | 2020-10-14 11:43 | PDOC PROGRESS REPORT ---
Subjective Date:: 10/14/20 Subjective:: Patient is currently doing well Discussed with the patient and the at the bedside regarding the patient's current conditions patient's wants to go home but discussed with the oncology and suggest the continues to steroid Reason For Visit: ANEMIA, SPLENOMEGALY, JUNDICE Physical Exam Vital Signs: Temp Pulse Resp BP Pulse Ox 98.4 F 85 18 119/55 L 100 10/14/20 07:55 10/14/20 07:55 10/14/20 00:11 10/14/20 07:55 10/14/20 07:55 Intake & Output 10/13/20 10/14/20 10/15/20 06:59 06:59 06:59 Intake Total 776 Balance 776 Weight 62.6 kg 57.5 kg General appearance: PRESENT: no acute distress, well-developed, well-nourished Head exam: PRESENT: atraumatic, normocephalic Eye exam: PRESENT: conjunctiva pink, EOMI, PERRLA. ABSENT: scleral icterus Ear exam: PRESENT: normal external ear exam Mouth exam: PRESENT: moist, tongue midline Neck exam: PRESENT: full ROM. ABSENT: carotid bruit, JVD, lymphadenopathy, thyromegaly Respiratory exam: PRESENT: clear to auscultation jose Cardiovascular exam: PRESENT: RRR. ABSENT: diastolic murmur, rubs, systolic murmur Pulses: PRESENT: normal dorsalis pedis pul, +2 pedal pulses bilateral Vascular exam: PRESENT: normal capillary refill GI/Abdominal exam: PRESENT: normal bowel sounds, soft. ABSENT: distended, guarding, mass, organolmegaly, rebound, tenderness Rectal exam: PRESENT: deferred Neurological exam: PRESENT: alert, awake, oriented to person, oriented to place, oriented to time, oriented to situation, CN II-XII grossly intact. ABSENT: motor sensory deficit Psychiatric exam: PRESENT: appropriate affect, normal mood. ABSENT: homicidal i deation, suicidal ideation Skin exam: PRESENT: dry, intact, warm. ABSENT: cyanosis, rash Results Laboratory Results: 10/13/20 05:47 10/14/20 05:51 10/14/20 10/14/20 05:51 05:51 Sodium 138.4 Potassium 4.5 Chloride 105 Carbon Dioxide 25 Anion Gap 8 BUN 27 H Creatinine 0.72 Est GFR ( Amer) > 60 Glucose 103 Calcium 9.3 Total Bilirubin 6.4 H AST 38 Alkaline Phosphatase 47 Total Protein 6.8 Albumin 3.7 Impressions: Chest X-Ray 10/11/20 14:33 IMPRESSION: No acute cardiopulmonary process. Abdomen/Pelvis CT 10/11/20 16:15 IMPRESSION: 1. No acute intra-abdominal abnormality. 2. Splenomegaly. 3. Prostatomegaly. 4. Colonic diverticulosis without diverticulitis. 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 Is this a current diagnosis for this admission?: Yes (3) Jaundice Is this a current diagnosis for this admission?: Yes (4) Sarcoidosis of other sites Is this a current diagnosis for this admission?: Yes (5) Splenomegaly Is this a current diagnosis for this admission?: Yes - Time Time Spent with patient: 15-24 minutes Level of Care: IMCU Medications reviewed and adjusted accordingly: Yes Anticipated discharge: Home Anticipated DC Timeframe: within 48 hours - Plan Summary Plan Summary: Continues IV steroid per hematology continues the current medications discussed with the patient and the at the bedside until the bilirubin coming down below 5 and patient CBC is stable patients can be go home but not now
[2020-10-15 07:12] LABS: HEMATOCRIT 17.5 % (37.9-51.0); MEAN CORPUSCULAR HEMOGLOBIN 33.7 pg (27.0-33.4); MEAN CORPUSCULAR HGB CONC 33.9 g/dL (32.0-36.0); MEAN CORPUSCULAR VOLUME 99 fl (80-97); RED BLOOD COUNT 1.76 10^6/uL (4.35-5.55); WHITE BLOOD COUNT 2.9 10^3/uL (4.0-10.5)
[2020-10-15 07:29] LABS: ALBUMIN 3.9 g/dL (3.5-5.0); ALKALINE PHOSPHATASE 50 U/L (38-126); ANION GAP 7 (5-19); ASPARTATE AMINO TRANSFERASE 38 U/L (17-59); BILIRUBIN,DIRECT 0.7 mg/dL (0.0-0.4); BILIRUBIN,TOTAL 5.9 mg/dL (0.2-1.3); BLOOD UREA NITROGEN 23 mg/dL (7-20); CALCIUM 9.4 mg/dL (8.4-10.2); CARBON DIOXIDE 27 mmol/L (22-30); CHLORIDE 103 mmol/L (98-107); GLUCOSE 99 mg/dL (75-110); POTASSIUM 4.3 mmol/L (3.6-5.0); TOTAL PROTEIN 6.9 g/dL (6.3-8.2)
[2020-10-15 07:41] LABS: PLATELET COUNT 60 10^3/uL (150-450)
[2020-10-15 07:44] LABS: ABSOLUTE LYMPHOCYTES# (MANUAL) 0.6 10^3/uL (0.5-4.7); ABSOLUTE MONOCYTES # (MANUAL) 0.3 10^3/uL (0.1-1.4); BAND NEUTROPHILS % (MANUAL) 4 % (3-5); BASOPHILS % (MANUAL) 0 % (0-2); EOSINOPHILS % (MANUAL) 0 % (0-6); LYMPHOCYTES % (MANUAL) 19 % (13-45); MONOCYTES % (MANUAL) 10 % (3-13); SEGMENTED NEUTROPHILS % (MAN) 63 % (42-78); TOTAL CELLS COUNTED 100
[2020-10-15 07:47] LABS: ANISOCYTOSIS 3+; OVALOCYTES SLIGHT; PLATELET COMMENT DECREASED; POIKILOCYTOSIS 1+; POLYCHROMASIA 2+; TEAR DROP CELLS 1+
[2020-10-15 07:48] LABS: METAMYELOCYTES % (MANUAL) 3 % (0-1); NUCLEATED RED BLOOD CELLS 11 /100 WBC (0)
[2020-10-15 07:50] LABS: HEMOGLOBIN 5.9 g/dL (13.5-17.0)
[2020-10-15] MEDS: METOPROLOL SUCCINATE 25 MG TAB.SR.24H PO SCH (08:21)
[2020-10-15] MEDS ORDERED: FUROSEMIDE INJ/PF 20 MG/2 ML SDV IV PRN (08:45)
[2020-10-15] MEDS ORDERED: ACETAMINOPHEN 325 MG TABLET PO PRN (08:45)
[2020-10-15] MEDS ORDERED: DIPHENHYDRAMINE HCL 25 MG CAPSULE PO PRN (08:45)
--- NOTE | 2020-10-15 08:50 | PDOC PROGRESS REPORT ---
Subjective Date:: 10/15/20 Subjective:: Patient feeling better today but hemoglobin dropped to 5.9. Gave orders for transfusion. Bilirubin is decreasing. Discussed with primary team that patient could be discharged by tomorrow if bilirubin continues to fall and hemoglobin is stable. Reason For Visit: ANEMIA, SPLENOMEGALY, JUNDICE Physical Exam Vital Signs: Temp Pulse Resp BP Pulse Ox 98.3 F 92 17 133/43 H 100 10/15/20 07:56 10/15/20 07:56 10/15/20 07:56 10/15/20 07:56 10/15/20 07:56 Intake & Output 10/14/20 10/15/20 10/16/20 06:59 06:59 06:59 Intake Total 776 980 Balance 776 980 Weight 57.5 kg 60 kg General appearance: PRESENT: no acute distress, well-developed, well-nourished Head exam: PRESENT: atraumatic, normocephalic Eye exam: PRESENT: conjunctiva pink, EOMI, PERRLA. ABSENT: scleral icterus Ear exam: PRESENT: normal external ear exam Mouth exam: PRESENT: moist, tongue midline Neck exam: ABSENT: carotid bruit, JVD, lymphadenopathy, thyromegaly Respiratory exam: PRESENT: clear to auscultation jose. ABSENT: rales, rhonchi, wheezes Cardiovascular exam: PRESENT: RRR. ABSENT: diastolic murmur, rubs, systolic murmur Pulses: PRESENT: normal dorsalis pedis pul Vascular exam: PRESENT: normal capillary refill GI/Abdominal exam: PRESENT: normal bowel sounds, soft. ABSENT: distended, guard ing, mass, organolmegaly, rebound, tenderness Rectal exam: PRESENT: deferred Extremities exam: PRESENT: full ROM. ABSENT: calf tenderness, clubbing, pedal edema Neurological exam: PRESENT: alert, awake, oriented to person, oriented to place, oriented to time, oriented to situation, CN II-XII grossly intact. ABSENT: motor sensory deficit Psychiatric exam: PRESENT: appropriate affect, normal mood. ABSENT: homicidal ideation, suicidal ideation Skin exam: PRESENT: dry, intact, warm. ABSENT: cyanosis, rash Results Laboratory Results: 10/15/20 06:15 10/15/20 06:15 10/15/20 10/15/20 06:15 06:15 WBC 2.9 L RBC 1.76 L Hgb 5.9 L Hct 17.5 L MCV 99 H MCH 33.7 H MCHC 33.9 RDW 22.0 H Plt Count 60 L Seg Neutrophils % Not Reportable Sodium 137.0 Potassium 4.3 Chloride 103 Carbon Dioxide 27 Anion Gap 7 BUN 23 H Creatinine 0.75 Est GFR ( Amer) > 60 Glucose 99 Calcium 9.4 Total Bilirubin 5.9 H AST 38 Alkaline Phosphatase 50 Total Protein 6.9 Albumin 3.9 Impressions: Chest X-Ray 10/11/20 14:33 IMPRESSION: No acute cardiopulmonary process. Abdomen/Pelvis CT 10/11/20 16:15 IMPRESSION: 1. No acute intra-abdominal abnormality. 2. Splenomegaly. 3. Prostatomegaly. 4. Colonic diverticulosis without diverticulitis. 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
[2020-10-15] MEDS: FAMOTIDINE 20 MG TABLET PO SCH ×2 (09:32→18:52)
[2020-10-15] MEDS: METHYLPREDNISOLONE INJ 125 MG/2 ML SDV IV SCH (09:32)
[2020-10-15] MEDS: TAMSULOSIN HCL 0.4 MG CAP.SR.24H PO SCH (09:32)
[2020-10-15 11:27] LABS: PATH REVIEW PATHOLOGIST REVIEWED
--- NOTE | 2020-10-15 12:33 | PDOC PROGRESS REPORT ---
Subjective Date:: 10/15/20 Subjective:: Patient is feeling much better but hemoglobin is 5.9 receiving the 2 units of th e blood today per hematology Patient bilirubin is also coming down Reason For Visit: ANEMIA, SPLENOMEGALY, JUNDICE Physical Exam Vital Signs: Temp Pulse Resp BP Pulse Ox 98.3 F 78 18 136/50 H 100 10/15/20 11:32 10/15/20 11:32 10/15/20 11:32 10/15/20 11:32 10/15/20 11:32 Intake & Output 10/14/20 10/15/20 10/16/20 06:59 06:59 06:59 Intake Total 776 980 220 Balance 776 980 220 Weight 57.5 kg 60 kg General appearance: PRESENT: no acute distress Eye exam: PRESENT: PERRLA Respiratory exam: PRESENT: clear to auscultation jose Cardiovascular exam: PRESENT: +S1, +S2 Musculoskeletal exam: PRESENT: ambulatory Neurological exam: PRESENT: alert, awake, oriented to person, oriented to place, oriented to time, oriented to situation Skin exam: PRESENT: dry Results Laboratory Results: 10/15/20 06:15 10/15/20 06:15 10/15/20 10/15/20 10/15/20 06:15 06:15 09:30 WBC 2.9 L RBC 1.76 L Hgb 5.9 L Hct 17.5 L MCV 99 H MCH 33.7 H MCHC 33.9 RDW 22.0 H Plt Count 60 L Seg Neutrophils % Not Reportable Sodium 137.0 Potassium 4.3 Chloride 103 Carbon Dioxide 27 Anion Gap 7 BUN 23 H Creatinine 0.75 Est GFR ( Amer) > 60 Glucose 99 Calcium 9.4 Total Bilirubin 5.9 H AST 38 Alkaline Phosphatase 50 Total Protein 6.9 Albumin 3.9 Blood Type O POSITIVE Antibody Screen POSITIVE Impressions: Chest X-Ray 10/11/20 14:33 IMPRESSION: No acute cardiopulmonary process. Abdomen/Pelvis CT 10/11/20 16:15 IMPRESSION: 1. No acute intra-abdominal abnormality. 2. Splenomegaly. 3. Prostatomegaly. 4. Colonic diverticulosis without diverticulitis. 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 Is this a current diagnosis for this admission?: Yes (3) Jaundice Is this a current diagnosis for this admission?: Yes (4) Sarcoidosis of other sites Is this a current diagnosis for this admission?: Yes (5) Splenomegaly Is this a current diagnosis for this admission?: Yes - Time Time Spent with patient: 15-24 minutes Level of Care: IMCU Medications reviewed and adjusted accordingly: Yes Anticipated discharge: Home Anticipated DC Timeframe: within 24 hours - Plan Summary Plan Summary: According to the hematology patients can be discharged tomorrow after receiving the 2 units of the blood discussed with the patient and the continues the current medications
[2020-10-15 22:09] LABS: HEMATOCRIT 26.7 % (37.9-51.0); MEAN CORPUSCULAR HEMOGLOBIN 32.9 pg (27.0-33.4); MEAN CORPUSCULAR HGB CONC 34.6 g/dL (32.0-36.0); RED BLOOD COUNT 2.81 10^6/uL (4.35-5.55); RED CELL DISTRIBUTION WIDTH 18.2 % (11.5-14.0); WHITE BLOOD COUNT 3.3 10^3/uL (4.0-10.5)
[2020-10-15 22:25] LABS: HEMOGLOBIN 9.3 g/dL (13.5-17.0)
[2020-10-15 22:26] LABS: MEAN CORPUSCULAR VOLUME 95 fl (80-97); PLATELET COUNT 72 10^3/uL (150-450)
[2020-10-15 22:35] LABS: ABSOLUTE LYMPHOCYTES# (MANUAL) 0.5 10^3/uL (0.5-4.7); ABSOLUTE MONOCYTES # (MANUAL) 0.1 10^3/uL (0.1-1.4); BAND NEUTROPHILS % (MANUAL) 4 % (3-5); BASOPHILS % (MANUAL) 0 % (0-2); EOSINOPHILS % (MANUAL) 0 % (0-6); LYMPHOCYTES % (MANUAL) 14 % (13-45); METAMYELOCYTES % (MANUAL) 3 % (0-1); MONOCYTES % (MANUAL) 3 % (3-13); NUCLEATED RED BLOOD CELLS 6 /100 WBC (0); SEGMENTED NEUTROPHILS % (MAN) 75 % (42-78); TOTAL CELLS COUNTED 100
[2020-10-15 22:37] LABS: ANISOCYTOSIS 1+; BURR CELLS SLIGHT; OVALOCYTES SLIGHT; PLATELET COMMENT DECREASED; POIKILOCYTOSIS SLIGHT; POLYCHROMASIA SLIGHT; TEAR DROP CELLS SLIGHT
[2020-10-16 07:02] LABS: HEMATOCRIT 24.9 % (37.9-51.0); HEMOGLOBIN 8.6 g/dL (13.5-17.0); MEAN CORPUSCULAR HGB CONC 34.7 g/dL (32.0-36.0); MEAN CORPUSCULAR VOLUME 95 fl (80-97); RED BLOOD COUNT 2.62 10^6/uL (4.35-5.55); RED CELL DISTRIBUTION WIDTH 19.4 % (11.5-14.0); WHITE BLOOD COUNT 4.5 10^3/uL (4.0-10.5)
[2020-10-16 07:15] LABS: ANION GAP 9 (5-19); BLOOD UREA NITROGEN 30 mg/dL (7-20); CALCIUM 9.5 mg/dL (8.4-10.2); CARBON DIOXIDE 25 mmol/L (22-30); CHLORIDE 103 mmol/L (98-107); GLUCOSE 104 mg/dL (75-110); POTASSIUM 4.4 mmol/L (3.6-5.0)
[2020-10-16 07:39] LABS: PLATELET COUNT 57 10^3/uL (150-450)
[2020-10-16 07:43] LABS: ABSOLUTE LYMPHOCYTES# (MANUAL) 0.9 10^3/uL (0.5-4.7); ABSOLUTE MONOCYTES # (MANUAL) 0.5 10^3/uL (0.1-1.4); BAND NEUTROPHILS % (MANUAL) 5 % (3-5); BASOPHILS % (MANUAL) 0 % (0-2); EOSINOPHILS % (MANUAL) 0 % (0-6); LYMPHOCYTES % (MANUAL) 19 % (13-45); METAMYELOCYTES % (MANUAL) 3 % (0-1); MONOCYTES % (MANUAL) 11 % (3-13); NUCLEATED RED BLOOD CELLS 4 /100 WBC (0); SEGMENTED NEUTROPHILS % (MAN) 62 % (42-78); TOTAL CELLS COUNTED 100
[2020-10-16 07:47] LABS: ANISOCYTOSIS SLIGHT; POLYCHROMASIA 1+; TEAR DROP CELLS 2+
[2020-10-16 07:48] LABS: PLATELET COMMENT DECREASED
[2020-10-16] MEDS: METOPROLOL SUCCINATE 25 MG TAB.SR.24H PO SCH (08:28)
[2020-10-16] MEDS: FAMOTIDINE 20 MG TABLET PO SCH ×2 (09:33→17:01)
[2020-10-16] MEDS: TAMSULOSIN HCL 0.4 MG CAP.SR.24H PO SCH (09:34)
[2020-10-16] MEDS: METHYLPREDNISOLONE INJ 125 MG/2 ML SDV IV SCH (09:34)
[2020-10-16 11:02] LABS: ALBUMIN 4.1 g/dL (3.5-5.0); ALKALINE PHOSPHATASE 54 U/L (38-126); ASPARTATE AMINO TRANSFERASE 46 U/L (17-59); BILIRUBIN,DIRECT 1.3 mg/dL (0.0-0.4); BILIRUBIN,TOTAL 7.4 mg/dL (0.2-1.3); TOTAL PROTEIN 7.1 g/dL (6.3-8.2)
--- NOTE | 2020-10-16 11:26 | PDOC PROGRESS REPORT ---
Subjective Date:: 10/16/20 Subjective:: Discussed with patient that bilirubin unfortunately was again elevated today at 7.4 higher than 5.9. We discussed this is likely secondary to blood transfusion. Called pharmacy and they did receive a shipment of IVIG in the last 24 hours. So they are able to give some dosing of that today. Plan for Gamunex IV today. Reason For Visit: ANEMIA, SPLENOMEGALY, JUNDICE Physical Exam Vital Signs: Temp Pulse Resp BP Pulse Ox 97.9 F 82 16 134/54 H 100 10/16/20 08:14 10/16/20 08:14 10/15/20 23:37 10/16/20 08:14 10/16/20 08:14 Intake & Output 10/15/20 10/16/20 10/17/20 06:59 06:59 06:59 Intake Total 980 1020 Balance 980 1020 Weight 60 kg 64.3 kg General appearance: PRESENT: no acute distress, well-developed, well-nourished Head exam: PRESENT: atraumatic, normocephalic Eye exam: PRESENT: conjunctiva pink, EOMI, PERRLA. ABSENT: scleral icterus Ear exam: PRESENT: normal external ear exam Mouth exam: PRESENT: moist, tongue midline Neck exam: ABSENT: carotid bruit, JVD, lymphadenopathy, thyromegaly Respiratory exam: PRESENT: clear to auscultation jose. ABSENT: rales, rhonchi, wheezes Cardiovascular exam: PRESENT: RRR. ABSENT: diastolic murmur, rubs, systolic murmur Pulses: PRESENT: normal dorsalis pedis pul Vascular exam: PRESENT: normal capillary refill GI/Abdominal exam: PRESENT: normal bowel sounds, soft. ABSENT: distended, guarding, mass, organolmegaly, rebound, tenderness Rectal exam: PRESENT: deferred Extremities exam: PRESENT: full ROM. ABSENT: calf tenderness, clubbing, pedal edema Neurological exam: PRESENT: alert, awake, oriented to person, oriented to place, oriented to time, oriented to situation, CN II-XII grossly intact. ABSENT: motor sensory deficit Psychiatric exam: PRESENT: appropriate affect, normal mood. ABSENT: homicidal ideation, suicidal ideation Skin exam: PRESENT: dry, intact, warm. ABSENT: cyanosis, rash Results Laboratory Results: 10/16/20 06:17 10/16/20 06:17 10/15/20 10/15/20 10/16/20 09:30 21:48 06:17 WBC 3.3 L 4.5 RBC 2.81 L 2.62 L Hgb 9.3 L D 8.6 L Hct 26.7 L 24.9 L MCV 95 D 95 MCH 32.9 33.0 MCHC 34.6 34.7 RDW 18.2 H 19.4 H Plt Count 72 L 57 L Seg Neutrophils % Not Reportable Not Reportable Sodium Potassium Chloride Carbon Dioxide Anion Gap BUN Creatinine Est GFR ( Amer) Glucose Calcium Total Bilirubin AST Alkaline Phosphatase Total Protein Albumin Blood Type O POSITIVE Antibody Screen POSITIVE 10/16/20 10/16/20 06:17 06:17 WBC RBC Hgb Hct MCV MCH MCHC RDW Plt Count Seg Neutrophils % Sodium 137.4 Potassium 4.4 Chloride 103 Carbon Dioxide 25 Anion Gap 9 BUN 30 H Creatinine 0.78 Est GFR ( Amer) > 60 Glucose 104 Calcium 9.5 Total Bilirubin 7.4 H AST 46 Alkaline Phosphatase 54 Total Protein 7.1 Albumin 4.1 Blood Type Antibody Screen Impressions: Chest X-Ray 10/11/20 14:33 IMPRESSION: No acute cardiopulmonary process. Abdomen/Pelvis CT 10/11/20 16:15 IMPRESSION: 1. No acute intra-abdominal abnormality. 2. Splenomegaly. 3. Prostatomegaly. 4. Colonic diverticulosis without diverticulitis. 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 Follow hemoglobin. (2) Acute ITP Is this a current diagnosis for this admission?: Yes Plan: [place] with IVIG as above (3) Jaundice Is this a current diagnosis for this admission?: Yes Plan: Bilirubin increased, plan for IVIG as above. Patient will need to stay until Sunday at least. (4) Sarcoidosis of other sites Is this a current diagnosis for this admission?: Yes Plan: Plan for IVIG as above may treat this as well. - Time Time Spent with patient: 35 or more minutes
[2020-10-16] MEDS ORDERED: IMMUNE GLOB,GAM CAPRYLATE(IGG) 20 GM/200 ML SDV IV SCH (12:00)
[2020-10-16] MEDS: IMMUNE GLOB GAM CAPRYLATE IV SCH (13:34)
[2020-10-16] MEDS: CONTAINER EMPTY IV SCH (13:34)
--- NOTE | 2020-10-16 20:04 | PDOC PROGRESS REPORT ---
Subjective Date:: 10/16/20 Subjective:: Patient seen by the bedside very hard of hearing, he was seen by the oncologist earlier today scheduled for IVIG Reason For Visit: ANEMIA, SPLENOMEGALY, JUNDICE Physical Exam Vital Signs: Temp Pulse Resp BP Pulse Ox 97.7 F 76 16 132/57 H 100 10/16/20 16:12 10/16/20 16:12 10/16/20 16:12 10/16/20 16:12 10/16/20 16:12 Intake & Output 10/15/20 10/16/20 10/17/20 06:59 06:59 06:59 Intake Total 980 1020 1580 Balance 980 1020 1580 Weight 60 kg 64.3 kg General appearance: PRESENT: no acute distress Eye exam: PRESENT: PERRLA Respiratory exam: PRESENT: clear to auscultation jose Cardiovascular exam: PRESENT: +S1, +S2 GI/Abdominal exam: PRESENT: soft Neurological exam: PRESENT: alert Results Laboratory Results: 10/16/20 06:17 10/16/20 06:17 10/15/20 10/16/20 10/16/20 21:48 06:17 06:17 WBC 3.3 L 4.5 RBC 2.81 L 2.62 L Hgb 9.3 L D 8.6 L Hct 26.7 L 24.9 L MCV 95 D 95 MCH 32.9 33.0 MCHC 34.6 34.7 RDW 18.2 H 19.4 H Plt Count 72 L 57 L Seg Neutrophils % Not Reportable Not Reportable Sodium 137.4 Potassium 4.4 Chloride 103 Carbon Dioxide 25 Anion Gap 9 BUN 30 H Creatinine 0.78 Est GFR ( Amer) > 60 Glucose 104 Calcium 9.5 Total Bilirubin AST Alkaline Phosphatase Total Protein Albumin 10/16/20 06:17 WBC RBC Hgb Hct MCV MCH MCHC RDW Plt Count Seg Neutrophils % Sodium Potassium Chloride Carbon Dioxide Anion Gap BUN Creatinine Est GFR ( Amer) Glucose Calcium Total Bilirubin 7.4 H AST 46 Alkaline Phosphatase 54 Total Protein 7.1 Albumin 4.1 Impressions: Chest X-Ray 10/11/20 14:33 IMPRESSION: No acute cardiopulmonary process. Abdomen/Pelvis CT 10/11/20 16:15 IMPRESSION: 1. No acute intra-abdominal abnormality. 2. Splenomegaly. 3. Prostatomegaly. 4. Colonic diverticulosis without diverticulitis. 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 Follow hemoglobin. (3) Splenomegaly Is this a current diagnosis for this admission?: Yes (4) Acute ITP Is this a current diagnosis for this admission?: Yes - Time Time Spent with patient: 15-24 minutes Level of Care: MEDICAL Medications reviewed and adjusted accordingly: Yes Anticipated discharge: Home Anticipated DC Timeframe: within 48 hours
[2020-10-17 05:51] LABS: HEMATOCRIT 21.8 % (37.9-51.0); MEAN CORPUSCULAR HEMOGLOBIN 32.5 pg (27.0-33.4); MEAN CORPUSCULAR HGB CONC 33.8 g/dL (32.0-36.0); MEAN CORPUSCULAR VOLUME 96 fl (80-97); RED BLOOD COUNT 2.27 10^6/uL (4.35-5.55); RED CELL DISTRIBUTION WIDTH 21.2 % (11.5-14.0); WHITE BLOOD COUNT 3.5 10^3/uL (4.0-10.5)
[2020-10-17 06:11] LABS: ANION GAP 10 (5-19); BLOOD UREA NITROGEN 32 mg/dL (7-20); CALCIUM 9.3 mg/dL (8.4-10.2); CARBON DIOXIDE 24 mmol/L (22-30); CHLORIDE 102 mmol/L (98-107); GLUCOSE 102 mg/dL (75-110); POTASSIUM 4.2 mmol/L (3.6-5.0)
[2020-10-17 06:44] LABS: HEMOGLOBIN 7.4 g/dL (13.5-17.0); PLATELET COUNT 65 10^3/uL (150-450)
[2020-10-17] MEDS: METOPROLOL SUCCINATE 25 MG TAB.SR.24H PO SCH (08:14)
[2020-10-17] MEDS: FAMOTIDINE 20 MG TABLET PO SCH ×2 (11:31→17:19)
[2020-10-17] MEDS: TAMSULOSIN HCL 0.4 MG CAP.SR.24H PO SCH (11:31)
[2020-10-17] MEDS: METHYLPREDNISOLONE INJ 125 MG/2 ML SDV IV SCH (11:31)
[2020-10-17 12:58] LABS: ALBUMIN 3.7 g/dL (3.5-5.0); ALKALINE PHOSPHATASE 50 U/L (38-126); ASPARTATE AMINO TRANSFERASE 40 U/L (17-59); BILIRUBIN,DIRECT 1.2 mg/dL (0.0-0.4); BILIRUBIN,TOTAL 5.8 mg/dL (0.2-1.3); TOTAL PROTEIN 7.7 g/dL (6.3-8.2)
[2020-10-17] MEDS: IMMUNE GLOB GAM CAPRYLATE IV SCH (13:55)
[2020-10-17] MEDS: CONTAINER EMPTY IV SCH (13:55)
--- NOTE | 2020-10-17 19:20 | PDOC PROGRESS REPORT ---
Subjective Date:: 10/17/20 Subjective:: Patient seen by the bedside very hard of hearing, no new complaints Reason For Visit: ANEMIA, SPLENOMEGALY, JUNDICE Physical Exam Vital Signs: Temp Pulse Resp BP Pulse Ox 98.7 F 80 15 140/60 H 97 10/17/20 16:00 10/17/20 16:00 10/17/20 16:00 10/17/20 16:00 10/17/20 16:00 Intake & Output 10/16/20 10/17/20 10/18/20 06:59 06:59 06:59 Intake Total 1020 2100 1136 Balance 1020 2100 1136 Weight 64.3 kg 64.3 kg General appearance: PRESENT: no acute distress Eye exam: PRESENT: PERRLA Respiratory exam: PRESENT: clear to auscultation jose Cardiovascular exam: PRESENT: +S1, +S2 GI/Abdominal exam: PRESENT: soft Neurological exam: PRESENT: alert Results Laboratory Results: 10/17/20 05:23 10/17/20 05:23 10/17/20 10/17/20 10/17/20 05:23 05:23 05:23 WBC 3.5 L RBC 2.27 L Hgb 7.4 L Hct 21.8 L MCV 96 MCH 32.5 MCHC 33.8 RDW 21.2 H Plt Count 65 L Sodium 136.3 L Potassium 4.2 Chloride 102 Carbon Dioxide 24 Anion Gap 10 BUN 32 H Creatinine 0.72 Est GFR ( Amer) > 60 Glucose 102 Calcium 9.3 Total Bilirubin 5.8 H AST 40 Alkaline Phosphatase 50 Total Protein 7.7 Albumin 3.7 Impressions: Chest X-Ray 10/11/20 14:33 IMPRESSION: No acute cardiopulmonary process. Abdomen/Pelvis CT 10/11/20 16:15 IMPRESSION: 1. No acute intra-abdominal abnormality. 2. Splenomegaly. 3. Prostatomegaly. 4. Colonic diverticulosis without diverticulitis. 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
[2020-10-18 05:21] LABS: HEMATOCRIT 20.5 % (37.9-51.0); MEAN CORPUSCULAR HEMOGLOBIN 33.2 pg (27.0-33.4); MEAN CORPUSCULAR HGB CONC 34.6 g/dL (32.0-36.0); MEAN CORPUSCULAR VOLUME 96 fl (80-97); RED BLOOD COUNT 2.13 10^6/uL (4.35-5.55); RED CELL DISTRIBUTION WIDTH 21.5 % (11.5-14.0)
[2020-10-18 05:31] LABS: ALBUMIN 3.9 g/dL (3.5-5.0); ALKALINE PHOSPHATASE 54 U/L (38-126); ANION GAP 8 (5-19); ASPARTATE AMINO TRANSFERASE 39 U/L (17-59); BILIRUBIN,DIRECT 0.5 mg/dL (0.0-0.4); BILIRUBIN,TOTAL 4.7 mg/dL (0.2-1.3); BLOOD UREA NITROGEN 26 mg/dL (7-20); CALCIUM 9.5 mg/dL (8.4-10.2); CARBON DIOXIDE 25 mmol/L (22-30); CHLORIDE 103 mmol/L (98-107); GLUCOSE 100 mg/dL (75-110); POTASSIUM 4.3 mmol/L (3.6-5.0); TOTAL PROTEIN 8.4 g/dL (6.3-8.2)
[2020-10-18 05:45] LABS: PLATELET COUNT 67 10^3/uL (150-450)
[2020-10-18 05:51] LABS: HEMOGLOBIN 7.1 g/dL (13.5-17.0)
--- NOTE | 2020-10-18 08:00 | PDOC PROGRESS REPORT ---
Subjective Date:: 10/18/20 Subjective:: Patient feeling better, walking around. Hemoglobin stable and bilirubin lower Reason For Visit: ANEMIA, SPLENOMEGALY, JUNDICE Physical Exam Vital Signs: Temp Pulse Resp BP Pulse Ox 98.7 F 76 17 139/71 H 100 10/17/20 23:53 10/17/20 23:53 10/17/20 23:53 10/17/20 23:53 10/17/20 23:53 Intake & Output 10/17/20 10/18/20 10/19/20 06:59 06:59 06:59 Intake Total 2100 1136 Balance 2100 1136 Weight 64.3 kg 63.6 kg General appearance: PRESENT: no acute distress, well-developed, well-nourished Head exam: PRESENT: atraumatic, normocephalic Eye exam: PRESENT: conjunctiva pink, EOMI, PERRLA. ABSENT: scleral icterus Ear exam: PRESENT: normal external ear exam Mouth exam: PRESENT: moist, tongue midline Neck exam: ABSENT: carotid bruit, JVD, lymphadenopathy, thyromegaly Respiratory exam: PRESENT: clear to auscultation jose. ABSENT: rales, rhonchi, wheezes Cardiovascular exam: PRESENT: RRR. ABSENT: diastolic murmur, rubs, systolic murmur Pulses: PRESENT: normal dorsalis pedis pul Vascular exam: PRESENT: normal capillary refill GI/Abdominal exam: PRESENT: normal bowel sounds, soft. ABSENT: distended, guarding, mass, organolmegaly, rebound, tenderness Rectal exam: PRESENT: deferred Extremities exam: PRESENT: full ROM. ABSENT: calf tenderness, clubbing, pedal edema Neurological exam: PRESENT: alert, awake, oriented to person, oriented to place, oriented to time, oriented to situation, CN II-XII grossly intact. ABSENT: motor sensory deficit Psychiatric exam: PRESENT: appropriate affect, normal mood. ABSENT: homicidal ideation, suicidal ideation Skin exam: PRESENT: dry, intact, warm. ABSENT: cyanosis, rash Results Laboratory Results: 10/18/20 04:51 10/18/20 04:51 10/17/20 10/18/20 10/18/20 05:23 04:51 04:51 WBC 3.0 L RBC 2.13 L Hgb 7.1 L Hct 20.5 L MCV 96 MCH 33.2 MCHC 34.6 RDW 21.5 H Plt Count 67 L Sodium 136.2 L Potassium 4.3 Chloride 103 Carbon Dioxide 25 Anion Gap 8 BUN 26 H Creatinine 0.75 Est GFR ( Amer) > 60 Glucose 100 Calcium 9.5 Total Bilirubin 5.8 H 4.7 H AST 40 39 Alkaline Phosphatase 50 54 Total Protein 7.7 8.4 H Albumin 3.7 3.9 Impressions: Chest X-Ray 10/11/20 14:33 IMPRESSION: No acute cardiopulmonary process. Abdomen/Pelvis CT 10/11/20 16:15 IMPRESSION: 1. No acute intra-abdominal abnormality. 2. Splenomegaly. 3. Prostatomegaly. 4. Colonic diverticulosis without diverticulitis. 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 Is this a current diagnosis for this admission?: Yes Plan: Stable (2) Acute ITP Is this a current diagnosis for this admission?: Yes Plan: Stable (3) Jaundice Is this a current diagnosis for this admission?: Yes Plan: Secondary to hemolytic anemia, improving (4) Sarcoidosis of other sites Is this a current diagnosis for this admission?: Yes Plan: Should improve over time - Time Time Spent with patient: 15-24 minutes Anticipated discharge: Home Anticipated DC Timeframe: within 24 hours Disposition: Appropriate per hematologic standpoint for discharge home today, patient will have follow-up in 1 week with labs
[2020-10-18] MEDS: FAMOTIDINE 20 MG TABLET PO SCH ×2 (09:09→18:09)
[2020-10-18] MEDS: METOPROLOL SUCCINATE 25 MG TAB.SR.24H PO SCH (09:09)
[2020-10-18] MEDS: TAMSULOSIN HCL 0.4 MG CAP.SR.24H PO SCH (09:09)
[2020-10-18] MEDS: METHYLPREDNISOLONE INJ 125 MG/2 ML SDV IV SCH (09:09)
[2020-10-18 17:50] VITALS: BP 136/50
--- NOTE | 2020-10-18 22:12 | PDOC DISCHARGE SUMMARY ---
Impression - Admit/DC Date/PCP Admission Date/Primary Care Provider: 10/11/20 21:15 VISHNU EBE MD Discharge Date: 10/18/20 - Discharge Diagnosis (1) Other autoimmune hemolytic anemia Is this a current diagnosis for this admission?: Yes (2) Sarcoidosis of other sites Is this a current diagnosis for this admission?: Yes (3) Anemia Is this a current diagnosis for this admission?: Yes (4) Splenomegaly Is this a current diagnosis for this admission?: Yes (5) Acute ITP Is this a current diagnosis for this admission?: Yes - Additional Information Resuscitation Status: Full Code Referrals: VISHNU BEE MD [Primary Care Provider] - Follow up as needed Home Medications: Metoprolol Succinate [Toprol Xl 25 mg Tab.sr] 25 mg PO QAM 08/20/20 Tamsulosin HCl [Flomax 0.4 mg Cap.sr] 0.4 mg PO DAILY 08/20/20 History of Present Illiness History of Present Illness: CABRERA PONCE is a 75 year old male,He has a history of systemic sarcoidosis, ITP, autoimmune hemolytic anemia, he was referred to the emergency room for evaluation of jaundice, he was found to have hyperbilirubinemia. Patient is well-known to Dr. Bee. Hospital Course Hospital Course: Patient was admitted for the management of autoimmune hemolytic anemia, he was seen in consultation by cognos architect Dr. Bee. He was treated with IV steroid, IVIG, he had blood transfusion but the Red blood cells were hemolyzed due to autoimmune process.He was comanaged by the cognos architect, Dr. Bee Physical Exam Vital Signs: Temp Pulse Resp BP Pulse Ox 97.8 F 80 17 136/50 H 100 10/18/20 17:50 10/18/20 17:50 10/18/20 17:50 10/18/20 17:50 10/18/20 17:50 Intake & Output 10/17/20 10/18/20 10/19/20 06:59 06:59 06:59 Intake Total 2100 1136 640 Balance 2100 1136 640 Weight 64.3 kg 63.6 kg 63.6 kg General appearance: PRESENT: no acute distress Eye exam: PRESENT: PERRLA Respiratory exam: PRESENT: clear to auscultation jsoe Cardiovascular exam: PRESENT: +S1, +S2 GI/Abdominal exam: PRESENT: soft Neurological exam: PRESENT: alert, CN II-XII grossly intact Results Laboratory Results: WBC 3.0 10^3/uL (4.0-10.5) L 10/18/20 04:51 RBC 2.13 10^6/uL (4.35-5.55) L 10/18/20 04:51 Hgb 7.1 g/dL (13.5-17.0) L 10/18/20 04:51 Hct 20.5 % (37.9-51.0) L 10/18/20 04:51 MCV 96 fl (80-97) 10/18/20 04:51 MCH 33.2 pg (27.0-33.4) 10/18/20 04:51 MCHC 34.6 g/dL (32.0-36.0) 10/18/20 04:51 RDW 21.5 % (11.5-14.0) H 10/18/20 04:51 Plt Count 67 10^3/uL (150-450) L 10/18/20 04:51 Lymph % (Auto) Not Reportable 10/16/20 06:17 [place] % (Auto) Not Reportable 10/16/20 06:17 Eos % (Auto) Not Reportable 10/16/20 06:17 Baso % (Auto) Not Reportable 10/16/20 06:17 Absolute Neuts (auto) Not Reportable 10/16/20 06:17 Absolute Lymphs (auto) Not Reportable 10/16/20 06:17 Absolute Monos (auto) Not Reportable 10/16/20 06:17 Absolute Eos (auto) Not Reportable 10/16/20 06:17 Absolute Basos (auto) Not Reportable 10/16/20 06:17 Total Counted 100 10/16/20 06:17 Seg Neutrophils % Not Reportable 10/16/20 06:17 Seg Neuts % (Manual) 62 % (42-78) 10/16/20 06:17 Band Neutrophils % 5 % (3-5) 10/16/20 06:17 Lymphocytes % (Manual) 19 % (13-45) 10/16/20 06:17 Atypical Lymphs % 1 % (0) 10/15/20 21:48 Monocytes % (Manual) 11 % (3-13) 10/16/20 06:17 Eosinophils % (Manual) 0 % (0-6) 10/16/20 06:17 Basophils % (Manual) 0 % (0-2) 10/16/20 06:17 Metamyelocytes % 3 % (0-1) H 10/16/20 06:17 Promyelocytes % 2 % (0) H 10/13/20 05:47 Abs Neuts (Manual) 3.2 10^3/uL (1.7-8.2) 10/16/20 06:17 Abs Lymphs (Manual) 0.9 10^3/uL (0.5-4.7) 10/16/20 06:17 Abs Monocytes (Manual) 0.5 10^3/uL (0.1-1.4) 10/16/20 06:17 Absolute Eos (Manual) 0.0 10^3/uL (0.0-0.6) 10/16/20 06:17 Abs Basophils (Manual) 0.0 10^3/uL (0.0-0.2) 10/16/20 06:17 Nucleated RBCs 4 /100 WBC (0) 10/16/20 06:17 Toxic Granulation SLIGHT 10/12/20 02:27 Platelet Comment DECREASED 10/16/20 06:17 Polychromasia 1+ 10/16/20 06:17 Poikilocytosis SLIGHT 10/15/20 21:48 Basophilic Stippling PRESENT 10/16/20 06:17 Anisocytosis SLIGHT 10/16/20 06:17 Macrocytosis SLIGHT 10/15/20 06:15 Tear Drop Cells 2+ 10/16/20 06:17 Ovalocytes SLIGHT 10/15/20 21:48 Petroleum Cells SLIGHT 10/15/20 21:48 Schistocytes SLIGHT 10/12/20 02:27 PT 15.6 SEC (11.4-15.4) H 10/11/20 15:05 INR 1.22 10/11/20 15:05 APTT 33.2 SEC (23.5-35.8) 10/11/20 15:05 Sodium 136.2 mmol/L (137-145) L 10/18/20 04:51 Potassium 4.3 mmol/L (3.6-5.0) 10/18/20 04:51 Chloride 103 mmol/L (98-107) 10/18/20 04:51 Carbon Dioxide 25 mmol/L (22-30) 10/18/20 04:51 Anion Gap 8 (5-19) 10/18/20 04:51 BUN 26 mg/dL (7-20) H 10/18/20 04:51 Creatinine 0.75 mg/dL (0.52-1.25) 10/18/20 04:51 Est GFR ( Amer) > 60 (>60) 10/18/20 04:51 Est GFR (MDRD) Non-Af > 60 (>60) 10/18/20 04:51 Glucose 100 mg/dL (75-110) 10/18/20 04:51 Calcium 9.5 mg/dL (8.4-10.2) 10/18/20 04:51 Total Bilirubin 4.7 mg/dL (0.2-1.3) H 10/18/20 04:51 Direct Bilirubin 0.5 mg/dL (0.0-0.4) H 10/18/20 04:51 Neonat Total Bilirubin Not Reportable 10/18/20 04:51 Neonat Direct Bilirubin Not Reportable 10/18/20 04:51 Neonat Indirect Bili Not Reportable 10/18/20 04:51 AST 39 U/L (17-59) 10/18/20 04:51 ALT 61 U/L (<50) H 10/18/20 04:51 Alkaline Phosphatase 54 U/L (38-126) 10/18/20 04:51 Total Protein 8.4 g/dL (6.3-8.2) H 10/18/20 04:51 Albumin 3.9 g/dL (3.5-5.0) 10/18/20 04:51 Hepatitis A IgM Ab Negative (Negative) 10/11/20 15:05 Hep Bs Antigen Negative (Negative) 10/11/20 15:05 Hep B Core IgM Ab Negative (Negative) 10/11/20 15:05 Hepatitis C Antibody <0.1 s/co ratio (0.0-0.9) 10/11/20 15:05 Slides for Path Review PATHOLOGIST REVIEWED 10/15/20 06:15 Blood Type O POSITIVE 10/15/20 09:30 Blood Type Confirm O POSITIVE 10/11/20 15:05 Antibody Screen POSITIVE 10/15/20 09:30 Antibody Identification Anti-K 10/15/20 09:30 Crossmatch See Detail 10/15/20 09:30 Impressions: Chest X-Ray 10/11/20 14:33 IMPRESSION: No acute cardiopulmonary process. Abdomen/Pelvis CT 10/11/20 16:15 IMPRESSION: 1. No acute intra-abdominal abnormality. 2. Splenomegaly. 3. Prostatomegaly. 4. Colonic diverticulosis without diverticulitis. Stroke Is this a Stroke Patient?: No Acute Heart Failure Is this a Heart Failure Patient?: No
== END 2020-10-18 18:07 | disposition home or self-care (01) | DRG 809 ==
LOC: ER 13:47 → EH 21:15 → 4S 22:24
PROVIDERS: ADMIT Internal Medicine Geriatric Medicine; ATTEND Family Medicine
PROC: 30233N1 Transfusion of Nonautologous Red Blood Cells into Peripheral Vein, Percutaneous Approach (ICD-10-PCS; principal; 2020-10-11)
PROC: 30233N1 Transfusion of Nonautologous Red Blood Cells into Peripheral Vein, Percutaneous Approach (ICD-10-PCS; 2020-10-12)
PROC: 30233N1 Transfusion of Nonautologous Red Blood Cells into Peripheral Vein, Percutaneous Approach (ICD-10-PCS; 2020-10-15)
DX: D59.19 Other autoimmune hemolytic anemia (principal); D69.3 Immune thrombocytopenic purpura; R17 Unspecified jaundice; D86.9 Sarcoidosis, unspecified; I10 Essential (primary) hypertension; N40.0 Benign prostatic hyperplasia without lower urinary tract symptoms; R16.1 Splenomegaly, not elsewhere classified; Z79.899 Other long term (current) drug therapy
CPT/HCPCS: 36415; 36430; 71045; 74176; 80048; 80053; 80074; 80076; 85025; 85027; 85610; 85730; 86850; 86870; 86900; 86901; 86902; 86920; 86922; 93005; 93010; 99285; G0378; J1561; J2930; J3490; P9016

== ENCOUNTER 2020-10-28 07:50 | Outpatient (CLI) | payer MEDICARE, OTHER ==
[~2020-10-28 07:50] MED LIST changes: +ACETAMINOPHEN 325 MG TABLET PO PRN; -BUPIVACAINE HCL 0.75% INJ/PF (7.5 MG/1 ML) 10 ML SDV OD PRN; +CONTAINER EMPTY IV PRN; +DEXTROSE 5%-WATER 250 ML IV PRN; +DIPHENHYDRAMINE HCL 50 MG/ML VIAL IV PRN; +GLY IV PRN; +IGA OV50 IV PRN; +IMMUN GLOB IV PRN; -KETOROLAC TROMETHAMINE 0.45% 4 DROP/0.4 ML DROPERETTE OD PRN; -LIDOCAINE 1% INJ-PF (10 MG/ML) 30 ML SDV ONE; -LIDOCAINE 4% INJ/PF (40 MG/ML) 5 ML AMPUL OD PRN; +METHYLPREDNISOLONE INJ 125 MG/2 ML SDV IV PRN
[2020-10-28 07:59] VITALS: BP 137/52
== END 2020-10-28 12:30 | disposition home or self-care (01) ==
LOC: II 07:50 → 5TH 07:51 → II 12:30
PROVIDERS: ATTEND Physician Assistant Medical
DX: D59.10 Autoimmune hemolytic anemia, unspecified (principal)
CPT/HCPCS: 96365; 96366; 96375; A9270 ×2; J1200; J2930; J1569; J3490

== ENCOUNTER 2020-11-01 17:03 | Inpatient (IN) | payer MEDICARE, OTHER ==
--- NOTE | 2020-11-01 18:03 | ER Document Report ---
Entered by ARIANA HAYES SCRIBE 11/01/20 [id number] Acting as scribe for:JULIAN CHASE DO ED General - General Chief Complaint: Weakness Stated Complaint: WEAKNESS Time Seen by Provider: 11/01/20 17:33 Information source: Patient Notes: This 75-year-old male patient with sarcoidosis and chronic anemia presents to the emergency department today with complaints of feeling weak for a couple of weeks with a low hemoglobin during outpatient labs. Patient had a hemoglobin of 6.8 prior to arrival. He reports he was last transfused last week. He has had associated shortness of breath, lightheaded, dizziness, and chest pain. He reports that the chest pain was in the pit of his stomach when he woke up this morning and has remained present and been in the same spot. He denies any fevers or blood thinning medication. TRAVEL OUTSIDE OF THE [place] IN LAST 30 DAYS: No - Related Data Allergies/Adverse Reactions: No Known Allergies Allergy (Verified 08/20/20 12:05) Past Medical History - General Information source: Patient - Social History Smoking Status: Never Smoker Cigarette use (# per day): No Frequency of alcohol use: None Drug Abuse: None Lives with: Family Family History: Reviewed & Not Pertinent - Past Medical History Cardiac Medical History: Reports: Hx Hypertension Renal/ Medical History: Reports: Hx Benign Prostatic Hyperplasia - Immunizations Hx Diphtheria, Pertussis, Tetanus Vaccination: Yes Review of Systems - Review of Systems Constitutional: denies: Fever EENT: No symptoms reported Cardiovascular: See HPI, Chest pain, Dizziness, Lightheaded Respiratory: See HPI, Short of breath Gastrointestinal: No symptoms reported Genitourinary: No symptoms reported Male Genitourinary: No symptoms reported Musculoskeletal: No symptoms reported Skin: No symptoms reported Hematologic/Lymphatic: No symptoms reported Neurological/Psychological: No symptoms reported -: Yes All other systems reviewed and negative Physical Exam - Vital signs Vitals: BP 118/81 11/01/20 12:01 - Notes Notes: Physical Exam: General: Alert, frail, pallor. HEENT: Normocephalic. Atraumatic. PERRL. Extraocular movements intact. Oropharynx clear. Pale conjunctiva. Neck: Supple. Non-tender. Respiratory: Mild respiratory distress. Mildly diminished in the bases bilaterally. Cardiovascular: Regular rate and rhythm. Abdominal: Normal Inspection. Non-tender. No distension. Normal Bowel Sounds. Back: No gross abnormalities. Extremities: Moves all four extremities. Upper extremities: Normal inspection. Normal ROM. Lower extremities: Normal inspection. No edema. Normal ROM. Neurological: Normal cognition. AAOx4. Normal speech. Psychological: Normal affect. Normal Mood. Skin: Warm. Dry. Normal color. Course - Re-evaluation Re-evalutation: 11/01/20 21:25 MDM Pleasant unfortunate 75 year old male with pancytopenia and feeling ge nerally weak. Has hemolytic anemia and sarcodiosis and is followed by Jese Cano and Fang locally. 11/02/20 00:24 His rapid PCR is + for covid and he is not elligible to get his IVIG tomorrow at the designated transfusion area. I have spoken with Dr. Headley and Dr. Cano and consensus is to have the pt admitted to observation and received IVIG here. We have put in for a bed. - Vital Signs Vital signs: Temp Pulse Resp BP Pulse Ox 98.7 F 76 27 H 147/72 H 100 11/01/20 22:30 11/02/20 01:31 11/02/20 01:46 11/02/20 01:46 11/02/20 01:46 - Laboratory Results Result Diagrams: 11/01/20 18:30 11/01/20 18:30 Laboratory Results Interpreted: 11/01/20 11/01/20 11/01/20 18:30 18:30 18:30 WBC 2.3 L RBC 1.92 L Hgb 6.2 L Hct 18.9 L MCV 99 H D RDW 24.3 H Plt Count 60 L Metamyelocytes % 5 H Abs Lymphs (Manual) 0.4 L Sodium 134.7 L BUN 22 H Glucose 166 H Lactic Acid 3.2 H Total Bilirubin 5.1 H Direct Bilirubin 1.0 H AST 88 H ALT 143 H Urine Urobilinogen Crossmatch 11/01/20 11/01/20 18:30 18:30 WBC RBC Hgb Hct MCV RDW Plt Count Metamyelocytes % Abs Lymphs (Manual) Sodium BUN Glucose Lactic Acid Total Bilirubin Direct Bilirubin AST ALT Urine Urobilinogen 4.0 H Crossmatch See Detail Critical Laboratory Results Reviewed: No Critical Results - Radiology Results Critical Radiology Results Reviewed: No Critical Results - EKG Interpretation by Al EKG shows normal: Sinus rhythm Rate: Normal Rhythm: NSR - NSR Nl [place] RBBB [address] elevation or depression my intepretation. Discharge - Discharge Clinical Impression: Pancytopenia, Weakness Anemia Qualifiers: Anemia type: unspecified type Qualified Code(s): D64.9 - Anemia, unspecified Condition: Stable Disposition: ADMITTED OBSERVATION Admitting Provider: [facility] Unit Admitted: Medical Floor I personally performed the services described in the documentation, reviewed and edited the documentation which was dictated to the scribe in my presence, and it accurately records my words and actions.
[2020-11-01] MEDS ORDERED: NORMAL SALINE 250 ML IV PRN ×2 (18:08)
--- NOTE | 2020-11-01 18:44 | RADIOLOGY REPORT (SQ) ---
EXAM DESCRIPTION: CHEST SINGLE VIEW IMAGES COMPLETED DATE/TIME: 11/01/2020 5:22 pm REASON FOR STUDY: htn. COMPARISON: 10/11/2020 EXAM PARAMETERS: NUMBER OF VIEWS: One view. TECHNIQUE: Single frontal radiographic view of the chest acquired. RADIATION DOSE: NA LIMITATIONS: None. FINDINGS: LUNGS AND PLEURA: No opacities, masses or pneumothorax. No pleural effusion. MEDIASTINUM AND HILAR STRUCTURES: No masses. Contour normal. HEART AND VASCULAR STRUCTURES: Heart normal in size. Normal vasculature. BONES: No acute findings. HARDWARE: None in the chest. OTHER: No other significant finding. IMPRESSION: NO ACUTE RADIOGRAPHIC FINDING IN THE CHEST. TECHNICAL DOCUMENTATION: JOB ID: [id number] 2010 [employer]- All Rights Reserved Reading location - IP/workstation name: [email or web address]
[2020-11-01 19:04] LABS: APPEARANCE,URINE CLEAR; BILIRUBIN,URINE NEGATIVE (NEGATIVE); COLOR,URINE AMBER; GLUCOSE, URINE NEGATIVE (NEGATIVE); KETONES,URINE NEGATIVE (NEGATIVE); LEUKOCYTE ESTERASE,URINE NEGATIVE (NEGATIVE); NITRITE,URINE NEGATIVE (NEGATIVE); PROTEIN,URINE NEGATIVE (NEGATIVE); URINE SPECIFIC GRAVITY 1.023
[2020-11-01 19:22] LABS: HEMATOCRIT 18.9 % (37.9-51.0); MEAN CORPUSCULAR HEMOGLOBIN 32.5 pg (27.0-33.4); RED BLOOD COUNT 1.92 10^6/uL (4.35-5.55); RED CELL DISTRIBUTION WIDTH 24.3 % (11.5-14.0); WHITE BLOOD COUNT 2.3 10^3/uL (4.0-10.5)
[2020-11-01 19:24] LABS: ALBUMIN 3.6 g/dL (3.5-5.0); ALKALINE PHOSPHATASE 83 U/L (38-126); ANION GAP 9 (5-19); ASPARTATE AMINO TRANSFERASE 88 U/L (17-59); BILIRUBIN,TOTAL 5.1 mg/dL (0.2-1.3); BLOOD UREA NITROGEN 22 mg/dL (7-20); C-REACTIVE PROTEIN 8.5 mg/L (<10.0); CALCIUM 8.5 mg/dL (8.4-10.2); CARBON DIOXIDE 23 mmol/L (22-30); CHLORIDE 103 mmol/L (98-107); GLUCOSE 166 mg/dL (75-110); POTASSIUM 4.4 mmol/L (3.6-5.0); TOTAL PROTEIN 7.8 g/dL (6.3-8.2)
[2020-11-01 19:25] LABS: HEMOGLOBIN 6.2 g/dL (13.5-17.0)
[2020-11-01 19:26] LABS: MEAN CORPUSCULAR VOLUME 99 fl (80-97); PLATELET COUNT 60 10^3/uL (150-450)
[2020-11-01 19:48] LABS: ABSOLUTE LYMPHOCYTES# (MANUAL) 0.4 10^3/uL (0.5-4.7); ABSOLUTE MONOCYTES # (MANUAL) 0.1 10^3/uL (0.1-1.4); BAND NEUTROPHILS % (MANUAL) 3 % (3-5); BASOPHILS % (MANUAL) 0 % (0-2); EOSINOPHILS % (MANUAL) 0 % (0-6); LYMPHOCYTES % (MANUAL) 18 % (13-45); MONOCYTES % (MANUAL) 6 % (3-13); SEGMENTED NEUTROPHILS % (MAN) 68 % (42-78); TOTAL CELLS COUNTED 100
[2020-11-01 19:50] LABS: POLYCHROMASIA SLIGHT
[2020-11-01 19:51] LABS: ANISOCYTOSIS 3+; OVALOCYTES SLIGHT; POIKILOCYTOSIS 1+; SCHISTOCYTES SLIGHT; TEAR DROP CELLS 1+
[2020-11-01 19:52] LABS: PLATELET COMMENT DECREASED
[2020-11-01 20:05] LABS: METAMYELOCYTES % (MANUAL) 5 % (0-1); NUCLEATED RED BLOOD CELLS 19 /100 WBC (0)
[2020-11-02] MEDS ORDERED: ACETAMINOPHEN 325 MG TABLET PO PRN ×2 (07:09→08:36)
--- NOTE | 2020-11-02 08:07 | PDOC CONSULTATION ---
Consultation Consult Date: 11/02/20 Attending physician:: PATTI HERNÁNDEZ Provider Consulted: VISHNU BEE Consult reason:: Patient well-known to oncology clinic with autoimmune hemolytic anemia History of Present Illness Admission Date/PCP: 11/02/20 00:42 DARLYN GRACE PA-C Patient complains of: Weakness, confusion History of Present Illness: CABRERA PONCE is a 75 year old male who presents with weakness and confusion, with known history of severe autoimmune hemolytic anemia, in the setting of severe systemic sarcoidosis. He was recently admitted with hemolytic crisis with indirect hyperbilirubinemia, we gave him IV steroids and placed him on oral steroids, also gave him IVIG, and that stabilized him for some time but his coun ts again dropped, he was being planned for IV Rituxan as an outpatient but That Was Delayed Because of Insurance Issues. Yesterday his called our office and he was poorly responsive, weak, unable to get up, brought to the ER, hemoglobin was in the 5 range, and he was tested in route with the rapid test for Covid and this was positive, the PCR was done in house and this was also positive confirming Covid infection. Chest x-ray did not show Covid pneumonia. But given the infection as well as his drop in hemoglobin he was admitted for transfusion and further treatment of the autoimmune hemolytic anemia. Today we gave orders for IV steroids as well as IVIG. Unfortunately, now that he has Covid positivity, he will need to be on quarantine at home ultimately for 14 days prior to receiving Rituxan. He was planned for Rituxan next week. This will need to be delayed by 1 week. Past Medical History Cardiac Medical History: Reports: Hypertension Denies: Congestive Heart Failure, Myocardial Infarction Pulmonary Medical History: Denies: Asthma, Bronchitis, Chronic Obstructive Pulmonary Disease (COPD), Pneumonia, Tuberculosis Neurological Medical History: Denies: Seizures Renal/ Medical History: Denies: End Stage Renal Disease GI Medical History: Denies: Cirrhosis, Gastroesophageal Reflux Disease, Hepatitis, Hiatal Hernia Musculoskeltal Medical History: Denies: Arthritis Psychiatric Medical History: Denies: Bipolar Disorder, Depression Hematology: Reports: Anemia Denies: Sickle Cell Disease, Bleeding Tendencies Past Surgical History Past Surgical History: Denies: Pacemaker Social History Lives with: Family Smoking Status: Never Smoker Frequency of Alcohol Use: None Hx Recreational Drug Use: No Drugs: None - Advance Directive Resuscitation Status: Full Code Family History Family History: Reviewed & Not Pertinent Parental Family History Reviewed: Yes Children Family History Reviewed: Yes Sibling(s) Family History Reviewed.: Yes Medication/Allergy Home Medications: Metoprolol Succinate [Toprol Xl 25 mg Tab.sr] 25 mg PO QAM 08/20/20 Tamsulosin HCl [Flomax 0.4 mg Cap.sr] 0.4 mg PO DAILY 08/20/20 Allergies/Adverse Reactions: No Known Allergies Allergy (Verified 08/20/20 12:05) Review of Systems Constitutional: ABSENT: chills, fever(s), headache(s), weight gain, weight loss Eyes: ABSENT: visual disturbances Ears: ABSENT: hearing changes Cardiovascular: ABSENT: chest pain, dyspnea on exertion, edema, orthropnea, palpitations Respiratory: ABSENT: cough, hemoptysis Gastrointestinal: ABSENT: abdominal pain, constipation, diarrhea, hematemesis, hematochezia, nausea, vomiting Genitourinary: ABSENT: dysuria, hematuria Musculoskeletal: ABSENT: joint swelling Integumentary: ABSENT: rash, wounds Neurological: ABSENT: abnormal gait, abnormal speech, confusion, dizziness, focal weakness, syncope Psychiatric: ABSENT: anxiety, depression, homidical ideation, suicidal ideation Endocrine: ABSENT: cold intolerance, heat intolerance, polydipsia, polyuria Hematologic/Lymphatic: ABSENT: easy bleeding, easy bruising Physical Exam Vital Signs: Temp Pulse Resp BP Pulse Ox 97.6 F 76 16 136/62 H 100 11/02/20 06:47 11/02/20 07:00 11/02/20 06:47 11/02/20 06:47 11/02/20 06:47 Intake & Output 11/01/20 11/02/20 11/03/20 06:59 06:59 06:59 Intake Total 550 300 Balance 550 300 Weight 59.2 kg General appearance: PRESENT: no acute distress, well-developed, well-nourished Head exam: PRESENT: atraumatic, normocephalic Eye exam: PRESENT: conjunctiva pink, EOMI, PERRLA. ABSENT: scleral icterus Ear exam: PRESENT: normal external ear exam Mouth exam: PRESENT: moist, tongue midline Neck exam: ABSENT: carotid bruit, JVD, lymphadenopathy, thyromegaly Respiratory exam: PRESENT: clear to auscultation jose. ABSENT: rales, rhonchi, wheezes Cardiovascular exam: PRESENT: RRR. ABSENT: diastolic murmur, rubs, systolic murmur Pulses: PRESENT: normal dorsalis pedis pul Vascular exam: PRESENT: normal capillary refill GI/Abdominal exam: PRESENT: normal bowel sounds, soft. ABSENT: distended, guarding, mass, organolmegaly, rebound, tenderness Rectal exam: PRESENT: deferred Extremities exam: PRESENT: full ROM. ABSENT: calf tenderness, clubbing, pedal edema Neurological exam: PRESENT: alert, awake, oriented to person, oriented to place, oriented to time, oriented to situation, CN II-XII grossly intact. ABSENT: motor sensory deficit Psychiatric exam: PRESENT: appropriate affect, normal mood. ABSENT: homicidal ideation, suicidal ideation Skin exam: PRESENT: dry, intact, warm. ABSENT: cyanosis, rash Results Laboratory Results: 11/01/20 18:30 11/01/20 18:30 11/01/20 11/01/20 11/01/20 18:30 18:30 18:30 WBC 2.3 L RBC 1.92 L Hgb 6.2 L Hct 18.9 L MCV 99 H D MCH 32.5 MCHC 33.0 RDW 24.3 H Plt Count 60 L Seg Neutrophils % Not Reportable Sodium 134.7 L Potassium 4.4 Chloride 103 Carbon Dioxide 23 Anion Gap 9 BUN 22 H Creatinine 0.77 Est GFR ( Amer) > 60 Glucose 166 H Lactic Acid 3.2 H Calcium 8.5 Magnesium 2.1 Total Bilirubin 5.1 H AST 88 H Alkaline Phosphatase 83 C-Reactive Protein 8.5 Total Protein 7.8 Albumin 3.6 Urine Color Urine Appearance Urine pH Ur Specific [place] Urine Protein Urine Glucose (UA) Urine Ketones Urine Blood Urine Nitrite Ur Leukocyte Esterase Urine WBC (Auto) Urine RBC (Auto) Blood Type Antibody Screen 11/01/20 11/01/20 18:30 18:30 WBC RBC Hgb Hct MCV MCH MCHC RDW Plt Count Seg Neutrophils % Sodium Potassium Chloride Carbon Dioxide Anion Gap BUN Creatinine Est GFR ( Amer) Glucose Lactic Acid Calcium Magnesium Total Bilirubin AST Alkaline Phosphatase C-Reactive Protein Total Protein Albumin Urine Color [place] Urine Appearance CLEAR Urine pH 5.0 Ur Specific [place] 1.023 Urine Protein NEGATIVE Urine Glucose (UA) NEGATIVE Urine Ketones NEGATIVE Urine Blood NEGATIVE Urine Nitrite NEGATIVE Ur Leukocyte Esterase NEGATIVE Urine WBC (Auto) 1 Urine RBC (Auto) 0 Blood Type O POSITIVE Antibody Screen POSITIVE 11/01/20 18:30 Troponin I < 0.012 Impressions: Chest X-Ray 11/01/20 18:05 IMPRESSION: NO ACUTE RADIOGRAPHIC FINDING IN THE CHEST. Assessment & Plan - Diagnosis (1) Other autoimmune hemolytic anemia Is this a current diagnosis for this admission?: Yes Plan: Plan to give IVIG as well as Solu-Medrol IV. If he is hemodynamically stable post infusion, it is reasonable to discharge him home. He will be on quarantine for 2 weeks and he will plan on getting Rituxan as an outpatient in about 2 weeks time. We will set this up as an outpatient (2) Sarcoidosis of other sites Is this a current diagnosis for this admission?: Yes Plan: Plan as above, hopefully Rituxan will help this situation as well. (3) COVID-19 Is this a current diagnosis for this admission?: Yes Plan: May have played some part in current presentation. As long as he is hemodynamically stable post above noted infusions, he should be safe to discharge home and self quarantine. - Time Time Spent with patient: Today spent nearly 90 minutes in discussion with patient, , attending physician, review of chart, placing orders and documenting in chart. Time Spent: Greater than 70 Minutes Total Critical Time (Minutes): 90 Medications reviewed and adjusted accordingly: Yes Anticipated discharge: Home Anticipated DC Timeframe: within 24 hours - Inpatient Certification Based on my medical assessment, after consideration of the patient's comorbidities, presenting symptoms, or acuity I expect that the services needed warrant INPATIENT care.: Yes I certify that my determination is in accordance with my understanding of Medicare's requirements for reasonable and necessary INPATIENT services [42 CFR 412.3e].: Yes Medical Necessity: Risk of Complication if Not Cared For in Hospital
[2020-11-02] MEDS ORDERED: CONTAINER EMPTY IV PRN (08:29)
[2020-11-02] MEDS ORDERED: IMMUNE GLOB GAM CAPRYLATE IV PRN (08:29)
[2020-11-02] MEDS ORDERED: DIPHENHYDRAMINE 50 MG/ML VIAL IV PRN (08:31)
[2020-11-02] MEDS ORDERED: DEXTROSE 5%-WATER 250 ML IV PRN (08:35)
[2020-11-02] MEDS ORDERED: METHYLPREDNISOLONE INJ 125 MG/2 ML SDV IV ONE (09:00)
[2020-11-02] MEDS ORDERED: FAMOTIDINE 20 MG TABLET PO SCH (10:00)
[2020-11-02 10:05] LABS: HEMATOCRIT 25.3 % (37.9-51.0); MEAN CORPUSCULAR HEMOGLOBIN 31.4 pg (27.0-33.4); MEAN CORPUSCULAR HGB CONC 33.6 g/dL (32.0-36.0); RED CELL DISTRIBUTION WIDTH 20.9 % (11.5-14.0); WHITE BLOOD COUNT 2.9 10^3/uL (4.0-10.5)
--- NOTE | 2020-11-02 10:30 | EKG REPORT ---
SEVERITY:- ABNORMAL ECG - SINUS RHYTHM RIGHT BUNDLE BRANCH BLOCK : Confirmed by: Mychal Regalado 02-Nov-2020 10:29:27
[2020-11-02 10:44] LABS: PATH REVIEW PATHOLOGIST REVIEWED
[2020-11-02 10:49] LABS: HEMOGLOBIN 8.5 g/dL (13.5-17.0); MEAN CORPUSCULAR VOLUME 94 fl (80-97)
[2020-11-02 10:50] LABS: PLATELET COUNT 46 10^3/uL (150-450)
--- NOTE | 2020-11-02 11:12 | PDOC H&P ---
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 recently admitting in the hospital for the anemia hyperbilirubinemia came to the emergency departments because of the patient was weak and not responsive very well Patient hemoglobin in the 5 range but other than that patient also found a Covid positive but patient is currently asymptomatic in a Covid standpoint with a chest x-ray was negative O2 sat is 100% on room air no other Covid symptoms Patient is already on a high dose of the prednisone 60 mg daily patient having no fever no chills Due to the Covid infection and the severe anemia admitted in the hospital give her IV IgG and also blood transfusions Patient otherwise doing well due to the ongoing pandemic with the Covid floor patient is currently having no symptoms with the Covid already on a steroid will probably discharge the patient at home continues to steroid and put a Z-Carmelo for 5 days Past Medical History Cardiac Medical History: Reports: Hypertension Denies: Congestive Heart Failure, Myocardial Infarction Pulmonary Medical History: Denies: Asthma, Bronchitis, Chronic Obstructive Pulmonary Disease (COPD), Pneumonia, Tuberculosis Neurological Medical History: Denies: Seizures Renal/ Medical History: Denies: End Stage Renal Disease GI Medical History: Denies: Cirrhosis, Gastroesophageal Reflux Disease, Hepatitis, Hiatal Hernia Musculoskeltal Medical History: Denies: Arthritis Psychiatric Medical History: Denies: Bipolar Disorder, Depression Hematology: Reports: Anemia Denies: Sickle Cell Disease, Bleeding Tendencies Past Surgical History Past Surgical History: Denies: Pacemaker Social History Information Source: Patient Lives with: Family Smoking Status: Never Smoker Frequency of Alcohol Use: None Hx Recreational Drug Use: No Drugs: None - Advance Directive Resuscitation Status: Full Code Family History Family History: Reviewed & Not Pertinent Parental Family History Reviewed: Yes Children Family History Reviewed: Yes Sibling(s) Family History Reviewed.: Yes Medication/Allergy Home Medications: Metoprolol Succinate [Toprol Xl 25 mg Tab.sr] 25 mg PO DAILY 08/20/20 Omeprazole 20 mg PO DAILY 11/02/20 Allergies/Adverse Reactions: No Known Allergies Allergy (Verified 08/20/20 12:05) Review of Systems Constitutional: PRESENT: fatigue. ABSENT: chills, fever(s), headache(s), weight gain, weight loss Eyes: ABSENT: visual disturbances Ears: ABSENT: hearing changes Cardiovascular: ABSENT: chest pain, dyspnea on exertion, edema, orthropnea, palpitations Respiratory: ABSENT: cough, hemoptysis Gastrointestinal: ABSENT: abdominal pain, constipation, diarrhea, hematemesis, hematochezia, nausea, vomiting Genitourinary: ABSENT: dysuria, hematuria Musculoskeletal: ABSENT: joint swelling Integumentary: ABSENT: rash, wounds Neurological: ABSENT: abnormal gait, abnormal speech, confusion, dizziness, focal weakness, syncope Psychiatric: ABSENT: anxiety, depression, homidical ideation, suicidal ideation Endocrine: ABSENT: cold intolerance, heat intolerance, menstrual abnormalities, polydipsia, polyuria Hematologic/Lymphatic: ABSENT: easy bleeding, easy bruising, lymphadenopathy Physical Exam Vital Signs: Temp Pulse Resp BP Pulse Ox 97.6 F 76 16 136/62 H 100 11/02/20 08:39 11/02/20 07:00 11/02/20 06:47 11/02/20 06:47 11/02/20 06:47 Intake & Output 11/01/20 11/02/20 11/03/20 06:59 06:59 06:59 Intake Total 550 300 Balance 550 300 Weight 59.2 kg General appearance: PRESENT: no acute distress, well-developed, well-nourished Head exam: PRESENT: atraumatic, normocephalic Eye exam: PRESENT: conjunctiva pink, EOMI, PERRLA. ABSENT: scleral icterus Ear exam: PRESENT: normal external ear exam Mouth exam: PRESENT: moist, tongue midline Neck exam: PRESENT: full ROM. ABSENT: carotid bruit, JVD, lymphadenopathy, thyromegaly Respiratory exam: PRESENT: clear to auscultation jose Cardiovascular exam: PRESENT: RRR. ABSENT: diastolic murmur, rubs, systolic murmur Pulses: PRESENT: normal dorsalis pedis pul, +2 pedal pulses bilateral Vascular exam: PRESENT: normal capillary refill GI/Abdominal exam: PRESENT: normal bowel sounds, soft. ABSENT: distended, guarding, mass, organolmegaly, rebound, tenderness Rectal exam: PRESENT: deferred Neurological exam: PRESENT: alert, awake, oriented to person, oriented to place, oriented to time, oriented to situation, CN II-XII grossly intact. ABSENT: motor sensory deficit Psychiatric exam: PRESENT: appropriate affect, normal mood. ABSENT: homicidal ideation, suicidal ideation Skin exam: PRESENT: dry, intact, warm. ABSENT: cyanosis, rash Results Laboratory Results: 11/02/20 09:46 11/01/20 18:30 11/01/20 11/01/20 11/01/20 18:30 18:30 18:30 WBC 2.3 L RBC 1.92 L Hgb 6.2 L Hct 18.9 L MCV 99 H D MCH 32.5 MCHC 33.0 RDW 24.3 H Plt Count 60 L Seg Neutrophils % Not Reportable Sodium 134.7 L Potassium 4.4 Chloride 103 Carbon Dioxide 23 Anion Gap 9 BUN 22 H Creatinine 0.77 Est GFR ( Amer) > 60 Glucose 166 H Lactic Acid 3.2 H Calcium 8.5 Magnesium 2.1 Total Bilirubin 5.1 H AST 88 H Alkaline Phosphatase 83 C-Reactive Protein 8.5 Total Protein 7.8 Albumin 3.6 Urine Color Urine Appearance Urine pH Ur Specific [place] Urine Protein Urine Glucose (UA) Urine Ketones Urine Blood Urine Nitrite Ur Leukocyte Esterase Urine WBC (Auto) Urine RBC (Auto) Blood Type Antibody Screen 11/01/20 11/01/20 11/02/20 18:30 18:30 09:46 WBC 2.9 L RBC 2.70 L Hgb 8.5 L D Hct 25.3 L MCV 94 D MCH 31.4 MCHC 33.6 RDW 20.9 H Plt Count 46 L Seg Neutrophils % Sodium Potassium Chloride Carbon Dioxide Anion Gap BUN Creatinine Est GFR ( Amer) Glucose Lactic Acid Calcium Magnesium Total Bilirubin AST Alkaline Phosphatase C-Reactive Protein Total Protein Albumin Urine Color LAMBERTO Urine Appearance CLEAR Urine pH 5.0 Ur Specific [place] 1.023 Urine Protein NEGATIVE Urine Glucose (UA) NEGATIVE Urine Ketones NEGATIVE Urine Blood NEGATIVE Urine Nitrite NEGATIVE Ur Leukocyte Esterase NEGATIVE Urine WBC (Auto) 1 Urine RBC (Auto) 0 Blood Type O POSITIVE Antibody Screen POSITIVE 11/01/20 18:30 Troponin I < 0.012 Impressions: Chest X-Ray 11/01/20 18:05 IMPRESSION: NO ACUTE RADIOGRAPHIC FINDING IN THE CHEST. Assessment & Plan - Diagnosis (1) Anemia Qualifiers: Anemia type: unspecified type Qualified Code(s): D64.9 - Anemia, unspecified Is this a current diagnosis for this admission?: Yes Plan: Patient have autoimmune hemolytic anemia currently follow with the hematology and oncology transfuse the 2 units of the bloods (2) COVID-19 Is this a current diagnosis for this admission?: Yes Plan: Patient's oxygen saturation is 100% on room air chest x-ray is negative for any pneumonia no other symptoms patient already in high-dose steroids patient is probably not required to be hospitalized for the Covid at this point continues to monitor at home's with the current treatments we will add the vitamin C zinc vitamin D (3) Pancytopenia Is this a current diagnosis for this admission?: Yes Plan: Due to the autoimmune hemolytic anemia due to the sarcoidosis currently follow with the hematology (4) Weakness Is this a current diagnosis for this admission?: Yes Plan: Due to his ongoing condition due to the sarcoid problems (5) Acute ITP Is this a current diagnosis for this admission?: Yes (6) Other autoimmune hemolytic anemia Is this a current diagnosis for this admission?: Yes (7) Sarcoidosis of other sites Is this a current diagnosis for this admission?: Yes - Time Time Spent: 50 to 70 Minutes Medications reviewed and adjusted accordingly: Yes Anticipated Discharge Disposition: Home with Home Health Anticipated Discharge Timeframe: within 24 hours - Inpatient Certification Based on my medical assessment, after consideration of the patient's comorbidities, presenting symptoms, or acuity I expect that the services needed warrant INPATIENT care.: Yes I certify that my determination is in accordance with my understanding of Medicare's requirements for reasonable and necessary INPATIENT services [42 CFR 412.3e].: Yes Medical Necessity: Significant Comorbidiites Make Outpatient Treatment Too Risky, Need Close Monitoring Due to Risk of Patient Decompensation Post Hospital Care: D/C Transmitter Chief Documentation - Plan Summary Plan Summary: Admit the patient is transfused 2 units of the bloods discussed with the hematology patient is currently otherwise stable patient is probably discharge home with home health continues the oral steroid continues to monitor discussed with the
--- NOTE | 2020-11-02 15:45 | PDOC DISCHARGE SUMMARY ---
Impression - Admit/DC Date/PCP Admission Date/Primary Care Provider: 11/02/20 00:42 DARLYN GRACE PA-C Discharge Date: 11/02/20 - Discharge Diagnosis (1) Anemia Is this a current diagnosis for this admission?: Yes (2) COVID-19 Is this a current diagnosis for this admission?: Yes (3) Pancytopenia Is this a current diagnosis for this admission?: Yes (4) Weakness Is this a current diagnosis for this admission?: Yes (5) Acute ITP Is this a current diagnosis for this admission?: Yes (6) Other autoimmune hemolytic anemia Is this a current diagnosis for this admission?: Yes (7) Sarcoidosis of other sites Is this a current diagnosis for this admission?: Yes - Additional Information Resuscitation Status: Full Code Discharge Diet: Regular Discharge Activity: Activity As Tolerated Referrals: PATTI HERNÁNDEZ MD [ACTIVE STAFF] - 11/17/20 10:45 am DARLYN CORTES PA-C [Primary Care Provider] - 11/26/20 10:00 am Prescriptions: Azithromycin [Zithromax 250 mg Tablet] 250 mg PO ASDIR PRN #6 tablet PRN Reason: Home Medications: Metoprolol Succinate [Toprol Xl 25 mg Tab.sr] 25 mg PO DAILY 08/20/20 Azithromycin [Zithromax 250 mg Tablet] 250 mg PO ASDIR PRN #6 tablet 11/02/20 Omeprazole 20 mg PO DAILY 11/02/20 History of Present Illiness History of Present Illness: CABRERA PONCE is a 75 year old male This 75-year-old male's with a 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 recently admitting in the hospital for the anemia hyperbilirubinemia came to the emergency departments because of the patient was weak and not responsive very well Patient hemoglobin in the 5 range but other than that patient also found a Covid positive but patient is currently asymptomatic in a Covid standpoint with a chest x-ray was negative O2 sat is 100% on room air no other Covid symptoms Patient is already on a high dose of the prednisone 60 mg daily patient having no fever no chills Due to the Covid infection and the severe anemia admitted in the hospital give her IV IgG and also blood transfusions Patient otherwise doing well due to the ongoing pandemic with the Covid floor patient is currently having no symptoms with the Covid already on a steroid will probably discharge the patient at home continues to steroid and put a Z-Carmelo for 5 days Hospital Course Hospital Course: This is 75-year-old male with a history of the severe hemolytic anemia sarcoidosis multiple involvement in the body multiple hospital admissions multiple blood transfusion pancytopenia and a chronic steroid brought to the emergency department because of the patient's feeling more weak Patient hemoglobin in the 5 range and also pancytopenia as usual and the bilirubin is also elevated as usual patient at this point admitting in the hospital transfuse the 2 units of the blood hematology was consulted giving the IV IgG Patient also positive for Covid but patient's having no symptoms patient O2 sat 100%'s chest x-ray is negative for any pneumonia and patient's other blood work is all stable And have a no fever no chills no other Covid symptoms at this point patient is probably already on a high dose of steroids 60 mg start the patient on a Z-Carmelo patient is probably at this point get a benefit to isolated at home and continues to monitor Patient does not require any acute hospitalizations for the Covid at this stage Discussed with the regarding the patient's current conditions and patient discharged home Also discussed with the oncology continues to care of the medical management oncology also discussed with the regarding the patient's current conditions Physical Exam Vital Signs: Temp Pulse Resp BP Pulse Ox 98.1 F 79 16 147/67 H 100 11/02/20 11:53 11/02/20 14:00 11/02/20 11:53 11/02/20 11:53 11/02/20 11:53 Intake & Output 11/01/20 11/02/20 11/03/20 06:59 06:59 06:59 Intake Total 550 900 Balance 550 900 Weight 59.2 kg General appearance: PRESENT: no acute distress, well-developed, well-nourished Head exam: PRESENT: atraumatic, normocephalic Eye exam: PRESENT: conjunctiva pink, EOMI, PERRLA. ABSENT: scleral icterus Ear exam: PRESENT: normal external ear exam Mouth exam: PRESENT: moist, tongue midline Neck exam: ABSENT: carotid bruit, JVD, lymphadenopathy, thyromegaly Respiratory exam: PRESENT: clear to auscultation jose. ABSENT: rales, rhonchi, wheezes Cardiovascular exam: PRESENT: RRR. ABSENT: diastolic murmur, rubs, systolic murmur Pulses: PRESENT: normal dorsalis pedis pul Vascular exam: PRESENT: normal capillary refill GI/Abdominal exam: PRESENT: normal bowel sounds, soft. ABSENT: distended, guarding, mass, organolmegaly, rebound, tenderness Rectal exam: PRESENT: deferred Extremities exam: PRESENT: full ROM. ABSENT: calf tenderness, clubbing, pedal edema Neurological exam: PRESENT: alert, awake, oriented to person, oriented to place, oriented to time, oriented to situation, CN II-XII grossly intact. ABSENT: motor sensory deficit Psychiatric exam: PRESENT: appropriate affect, normal mood. ABSENT: homicidal ideation, suicidal ideation Skin exam: PRESENT: dry, intact, warm. ABSENT: cyanosis, rash Results Laboratory Results: WBC 2.9 10^3/uL (4.0-10.5) L 11/02/20 09:46 RBC 2.70 10^6/uL (4.35-5.55) L 11/02/20 09:46 Hgb 8.5 g/dL (13.5-17.0) L D 11/02/20 09:46 Hct 25.3 % (37.9-51.0) L 11/02/20 09:46 MCV 94 fl (80-97) D 11/02/20 09:46 MCH 31.4 pg (27.0-33.4) 11/02/20 09:46 MCHC 33.6 g/dL (32.0-36.0) 11/02/20 09:46 RDW 20.9 % (11.5-14.0) H 11/02/20 09:46 Plt Count 46 10^3/uL (150-450) L 11/02/20 09:46 Lymph % (Auto) Not Reportable 11/01/20 18:30 [place] % (Auto) Not Reportable 11/01/20 18:30 Eos % (Auto) Not Reportable 11/01/20 18:30 Baso % (Auto) Not Reportable 11/01/20 18:30 Absolute Neuts (auto) Not Reportable 11/01/20 18:30 Absolute Lymphs (auto) Not Reportable 11/01/20 18:30 Absolute Monos (auto) Not Reportable 11/01/20 18:30 Absolute Eos (auto) Not Reportable 11/01/20 18:30 Absolute Basos (auto) Not Reportable 11/01/20 18:30 Total Counted 100 11/01/20 18:30 Seg Neutrophils % Not Reportable 11/01/20 18:30 Seg Neuts % (Manual) 68 % (42-78) 11/01/20 18:30 Band Neutrophils % 3 % (3-5) 11/01/20 18:30 Lymphocytes % (Manual) 18 % (13-45) 11/01/20 18:30 Monocytes % (Manual) 6 % (3-13) 11/01/20 18:30 Eosinophils % (Manual) 0 % (0-6) 11/01/20 18:30 Basophils % (Manual) 0 % (0-2) 11/01/20 18:30 Metamyelocytes % 5 % (0-1) H 11/01/20 18:30 Abs Neuts (Manual) 1.7 10^3/uL (1.7-8.2) 11/01/20 18:30 Abs Lymphs (Manual) 0.4 10^3/uL (0.5-4.7) L 11/01/20 18:30 Abs Monocytes (Manual) 0.1 10^3/uL (0.1-1.4) 11/01/20 18:30 Absolute Eos (Manual) 0.0 10^3/uL (0.0-0.6) 11/01/20 18:30 Abs Basophils (Manual) 0.0 10^3/uL (0.0-0.2) 11/01/20 18:30 Nucleated RBCs 19 /100 WBC (0) 11/01/20 18:30 Platelet Comment DECREASED 11/01/20 18:30 Polychromasia SLIGHT 11/01/20 18:30 Poikilocytosis 1+ 11/01/20 18:30 Anisocytosis 3+ 11/01/20 18:30 Macrocytosis SLIGHT 11/01/20 18:30 Tear Drop Cells 1+ 11/01/20 18:30 Ovalocytes SLIGHT 11/01/20 18:30 Schistocytes SLIGHT 11/01/20 18:30 Sodium 134.7 mmol/L (137-145) L 11/01/20 18:30 Potassium 4.4 mmol/L (3.6-5.0) 11/01/20 18:30 Chloride 103 mmol/L (98-107) 11/01/20 18:30 Carbon Dioxide 23 mmol/L (22-30) 11/01/20 18:30 Anion Gap 9 (5-19) 11/01/20 18:30 BUN 22 mg/dL (7-20) H 11/01/20 18:30 Creatinine 0.77 mg/dL (0.52-1.25) 11/01/20 18:30 Est GFR ( Amer) > 60 (>60) 11/01/20 18:30 Est GFR (MDRD) Non-Af > 60 (>60) 11/01/20 18:30 Glucose 166 mg/dL (75-110) H 11/01/20 18:30 Lactic Acid 3.2 mmol/L (0.7-2.1) H 11/01/20 18:30 Calcium 8.5 mg/dL (8.4-10.2) 11/01/20 18:30 Magnesium 2.1 mg/dL (1.6-2.3) 11/01/20 18:30 Total Bilirubin 5.1 mg/dL (0.2-1.3) H 11/01/20 18:30 Direct Bilirubin 1.0 mg/dL (0.0-0.4) H 11/01/20 18:30 Neonat Total Bilirubin Not Reportable 11/01/20 18:30 Neonat Direct Bilirubin Not Reportable 11/01/20 18:30 Neonat Indirect Bili Not Reportable 11/01/20 18:30 AST 88 U/L (17-59) H 11/01/20 18:30 ALT 143 U/L (<50) H 11/01/20 18:30 Alkaline Phosphatase 83 U/L (38-126) 11/01/20 18:30 Troponin I < 0.012 ng/mL 11/01/20 18:30 C-Reactive Protein 8.5 mg/L (<10.0) 11/01/20 18:30 Total Protein 7.8 g/dL (6.3-8.2) 11/01/20 18:30 Albumin 3.6 g/dL (3.5-5.0) 11/01/20 18:30 Urine Color LAMBERTO 11/01/20 18:30 Urine Appearance CLEAR 11/01/20 18:30 Urine pH 5.0 (5.0-9.0) 11/01/20 18:30 Ur Specific [place] 1.023 11/01/20 18:30 Urine Protein NEGATIVE mg/dL (NEGATIVE) 11/01/20 18:30 Urine Glucose (UA) NEGATIVE mg/dL (NEGATIVE) 11/01/20 18:30 Urine Ketones NEGATIVE mg/dL (NEGATIVE) 11/01/20 18:30 Urine Blood NEGATIVE (NEGATIVE) 11/01/20 18:30 Urine Nitrite NEGATIVE (NEGATIVE) 11/01/20 18:30 Urine Bilirubin NEGATIVE (NEGATIVE) 11/01/20 18:30 Urine Urobilinogen 4.0 mg/dL (<2.0) H 11/01/20 18:30 Ur Leukocyte Esterase NEGATIVE (NEGATIVE) 11/01/20 18:30 Urine WBC (Auto) 1 /HPF 11/01/20 18:30 Urine RBC (Auto) 0 /HPF 11/01/20 18:30 Urine Bacteria (Auto) TRACE /HPF 11/01/20 18:30 Urine Mucus (Auto) OCC /LPF 11/01/20 18:30 Urine Ascorbic Acid NEGATIVE (NEGATIVE) 11/01/20 18:30 Influenza A (RT-PCR) NEGATIVE (NEGATIVE) 11/01/20 21:45 Influenza B (RT-PCR) NEGATIVE (NEGATIVE) 11/01/20 21:45 RSV (RT-PCR) NEGATIVE (NEGATIVE) 11/01/20 21:45 SARS-CoV-2 Rap RNA(RT-PCR) POSITIVE (NEGATIVE) 11/01/20 21:45 Slides for Path Review PATHOLOGIST REVIEWED 11/01/20 18:30 Blood Type O POSITIVE 11/01/20 18:30 Antibody Screen POSITIVE 11/01/20 18:30 Antibody Identification Anti-K 11/01/20 18:30 Crossmatch See Detail 11/01/20 18:30 11/01/20 18:30 Troponin I < 0.012 Impressions: Chest X-Ray 11/01/20 18:05 IMPRESSION: NO ACUTE RADIOGRAPHIC FINDING IN THE CHEST. Plan Time Spent: Greater than 30 Minutes - Follow outpatient as usual with oncology Stroke Is this a Stroke Patient?: No Acute Heart Failure Is this a Heart Failure Patient?: No
[2020-11-02 15:50] VITALS: BP 136/62
== END 2020-11-02 16:00 | disposition home or self-care (01) | DRG 808 ==
LOC: ER 17:03 → OBSVTOIN 11-02 00:42 → EH 11-02 00:42 → 3W 11-02 02:35
PROVIDERS: ADMIT Family Medicine; ATTEND Family Medicine
PROC: 30233N1 Transfusion of Nonautologous Red Blood Cells into Peripheral Vein, Percutaneous Approach (ICD-10-PCS; principal; 2020-11-01)
PROC: 30233S0 Transfusion of Autologous Globulin into Peripheral Vein, Percutaneous Approach (ICD-10-PCS; 2020-11-01)
DX: D59.10 Autoimmune hemolytic anemia, unspecified (principal); U07.1 COVID-19; D69.3 Immune thrombocytopenic purpura; D61.818 Other pancytopenia; D86.89 Sarcoidosis of other sites; I10 Essential (primary) hypertension; Z79.899 Other long term (current) drug therapy; N40.0 Benign prostatic hyperplasia without lower urinary tract symptoms
CPT/HCPCS: 36415; 36430; 71045; 80053; 81001; 83605; 83735; 84484; 85025; 85027; 86140; 86850; 86870; 86900; 86901; 86902; 86920; 86922; 93005; 93010; 96360; 96361; 99285; 0241U; C9803; J1200; J1561; J2930; J3490; J7050; P9016